=== PATIENT | female | born 1955 | race Caucasian/White ===

== ENCOUNTER → 2017-04-18 | Outpatient (CLI) | payer OTHER ==
[~2017-04-18] MED LIST: ABILIFY; ABILIFY 5 MG TAB5 MG PO; ABILIFY10 MG PO; ALLEGRA ALLERG180 MG PO; ATIVAN0.5 MG PO; ATIVAN1 MG PO; AZITHROMYCIN 2250 MG PO; BUPROPION; BUSPAR30 MG PO; BUSPIRONE HCL10 MG PO; CEFDINIR300 MG PO; CHLORTHALIDONE25 MG PO; COLESTID1 GM PO; COLESTID5 GM PO; CYCLOBENZAPRINE5 MG PO; CYMBALTA PO; CYMBALTA30 MG PO; CYMBALTA60 MG PO; EFFEXOR 5050 MG/1 T1 PO; EFFEXOR PO; EFFEXOR XR150 MG PO; EFFEXOR XR75 MG PO; ELIQUIS5 MG PO; ESTRATEST TABL1 EACH PO; HYDROCHLOROTHIA25 M2 PO; HYDROCODON-ACE1 EAC5 PO; IBUPROFEN 200200 M1 PO; IBUPROFEN 800800 M1 PO; KLONOPIN1 MG PO; LEVAQUIN 250 M250 MG PO; LEVSIN PO; LISINOPRIL2.5 MG PO; LISINOPRIL20 MG PO; LOMOTIL TABLET1 EACH PO; MOBIC15 MG PO; MOBIC7.5 MG PO; MS CONTIN15 MG PO; MS CONTIN30 MG PO; MUCINEX TA600 MG/TA1 PO; MUCINEX600 MG PO; MUCUS RELIEF200 MG PO; NEURONTIN 300300 M1 PO; NEXIUM 40 MG CA40 M1 PO; NORCO 10-325 T1 EAC1 PO; NORCO 10-325 T1 EACH PO; NORVASC2.5 MG PO; NUCYNTA ER150 MG PO; NUCYNTA ER50 MG PO; OXYCONTIN15 MG PO; PREDNISONE 10 M10 MG PO; PREMPRO; PRILOSEC 20 MG20 MG PO; PRILOSEC40 MG PO; REMICADE 1100 MG/VIA IV; SINGULAIR 10 MG10 M1 PO; TESSALON PERLE100 MG PO; TIZANIDINE HCL2 M1 PO; TRAZODONE HCL50 MG PO; VENTOLIN HFA 1818 GM INH; VITAMIN B-12 IM; VITAMIN B-12500 MCG PO; VITAMIN D10000 UNIT PO; WELLBUTRIN 75 M75 M1 PO; WELLBUTRIN SR150 MG PO; ZANAFLEX4 MG PO; ZANTAC 150MG T150 MG PO; [UNRECOGNIZED DRUG - OTHER]
--- NOTE | 2017-04-23 07:21 | PAINCON ---
[facility] [address] [place] [address] PAIN MANAGEMENT CONSULTATION Name: BRYN MANZANARES [id number] Admission: 04/18/17 Attend Phys: Tiffanie Oneal Discharge: Date of : 51 Report #: [id number] THIS REPORT FOR: //name// CC: Jay Gonzalez DATE OF SERVICE: 04/18/2017 The patient is a 61-year-old female typically treated for cervical radiculopathy, status post decompressive laminectomy, requiring high-risk complex medication management. At last visit 02/21/2017, she was doing well on baseline medication. She had failed MS Contin 15 mg q. 8 hours. We had increased the MS Contin 30 mg b.i.d. She has been doing better with this. Takes hydrocodone 10/325 intermittently, typically 1 tablet up to 3 times a day. She returns to Pain Clinic today noting medications continues to provide sufficient analgesia to participate in activities of daily living, rates the pain a 4 on a VAS. Having some increasing pain in her hands with pain in the thumbs. PHYSICAL EXAMINATION: Shows 5 feet 8 inches, 188-pound female, BMI is 28.6 kg/m2, blood pressure 126/71, pulse 93, respirations 16. Cervical range of motion is modestly limited. Upper extremity strength is generally preserved. Hand grasp is symmetric. Does have some tenderness over the first metacarpophalangeal joint. No significant osseous or rheumatoid nodules are noted. We reviewed the fact that opiate medications are being used to provide analgesia adequate to support activities of daily living, not attempting to achieve a specific pain score on the 0-10 Visual Analog Scale. The current opiate medications are providing sufficient analgesia to allow the patient to participate in activities of daily living. The patient is not exhibiting any aberrant behavior suggestive of drug diversion. The patient is not having any adverse reactions to medications. The patient is not suffering from daytime somnolence or mental acuity changes. The patient is managing opiate-induced constipation with appropriate iihy-tgr-gqirrua agents and dietary considerations. The patient was counseled on concern for caution with operating a motor vehicle while using opiate medications. A physical exam was performed and the patient's functional status was evaluated. All patients with back pain were advised against the bed rest greater than 4 days and were advised to return to normal activities. Pain score assessment was noted and the treatment plan was reviewed with the patient. All current medications, both prescribed and OTC were reviewed and reconciled on the electronic medical record. Tobacco screening was accomplished and smoking cessation was advised when indicated. BMI was noted and diet/[place] [address] PAIN MANAGEMENT CONSULTATION Name: BRYN MANZANARES Room: [facility] Mendoza#: [id number] Admission: 04/18/17 Attend Phys: Tiffanie Oneal Discharge: Date of : 51 Report #: [id number] modification was recommended for all patients following outside normal parameters. I reviewed with the patient today their responsibilities to safeguard prescription medications, reviewed their responsibility to utilize medications only as prescribed by the physician. They are to seek and receive pain medications only from 1 physician group ( [facility]). They are to use 1 pharmacy and keep the clinic informed if they change pharmacies. Their responsibilities include making followup visits in a timely fashion and to avoid abrupt discontinuation of medication usage. Their responsibilities further include bringing their medications (bottles from the pharmacy with residual pills) to the visit for possible confirmation of pill counts and the patient understands it is their responsibility to submit to random drug screens to ensure both that the medications prescribed are present, and that no other controlled substances are present. All prescriptions provided today were generated electronically. ASSESSMENT: Symptomatic cervical radiculopathy, status post decompressive laminectomy requiring high-risk complex medication management. The patient with some issues with chronic anxiety and depression. RECOMMENDATION: Continue current medication unchanged including MS Contin 30 mg b.i.d., hydrocodone 10/325 one tablet up to 3 times a day. The patient and her are both seen in the Pain Clinic. They have gotten off cycle by about 2 weeks. I did provide the patient with a 2-week prescription today and then a 2 and 6-week release prescription. We will plan on seeing both she and her back in 2-1/2 months. We did go over the opiate consent to treat contract and this was signed again today. Last random drug screen appears to be 04/12/2016 positive for prescribed medications and no others. Discharged in good and stable condition. We will renew buccal drug swab at next visit. No aberrant behavior suggestive of drug diversion, simply complying with opiate consent to treat contract. <ELECTRONICALLY SIGNED> By: Dank Gonzalez DO 04/23/17 0721 1337 [id number] Gonzalez DO /nt
== END ==
LOC: M.PC 10:34
DX: M54.12 Radiculopathy, cervical region (principal); F41.9 Anxiety disorder, unspecified; F32.9 Major depressive disorder, single episode, unspecified; Z98.890 Other specified postprocedural states; Z79.899 Other long term (current) drug therapy

== ENCOUNTER → 2017-06-13 | Outpatient (CLI) | payer OTHER ==
--- NOTE | 2017-06-18 08:02 | PAINCON ---
[facility] [address] [place] [address] PAIN MANAGEMENT CONSULTATION Name: BRYN MANZANARES [id number] Admission: 06/13/17 Attend Phys: Tiffanie Oneal Discharge: Date of : 53 Report #: [id number] THIS REPORT FOR: //name// CC: Jay Gonzalez DATE OF SERVICE: 06/13/2017 The patient is a 61-year-old female, prior seen on 04/18/2017. She was treated for cervical radiculopathy, status post decompressive laminectomy requiring complex medication management. Continued on MS Contin 30 mg b.i.d., hydrocodone 10/325 for breakthrough pain. She returns to pain clinic today noting medications generally providing sufficient analgesia to participate in activities of daily living. She takes 3-4 hydrocodone for breakthrough pain. Tizanidine as needed for spasm, MS Contin 30 mg b.i.d. Today, we discussed concerns for opiate-induced hyperalgesia at length. She rates pain as a 7 on a VAS, pain all over "with primary pain in neck and shoulders and hands." She is going to [place], [place] to help her mother who is scheduled for her second total knee arthroplasty. Currently, she has a little upper respiratory infection, on Levaquin. PHYSICAL EXAMINATION: GENERAL: Otherwise unchanged. Height 5 feet 8 inches, 187 pounds female, BMI is 28 kilograms per meter squared. VITAL SIGNS: Blood pressure 133/74, pulse is 108, respirations 16. NEUROLOGIC: Alert to person, place and time, judged to be a reasonable historian. Cervical range of motion is modestly limited. She has a little photophobia today. EXTREMITIES: Upper extremity strength is symmetric. She rises from chair using armrest, modestly antalgic gait, diffuse tenderness across the low back. No discrete trigger points noted. We reviewed the fact that opiate medications are being used to provide analgesia adequate to support activities of daily living, not attempting to achieve a specific pain score on the 0-10 Visual Analog Scale. The current opiate medications are providing sufficient analgesia to allow the patient to participate in activities of daily living. The patient is not exhibiting any aberrant behavior suggestive of drug diversion. The patient is not having any adverse reactions to medications. The patient is not suffering from daytime somnolence or mental acuity changes. The patient is managing opiate-induced constipation with appropriate trsw-uft-odyervo agents and dietary considerations. The patient was counseled on concern for caution with operating a motor vehicle while using opiate medications. A physical exam was performed and the patient's functional status was evaluated. All patients with back pain were advised against the bed rest greater than [address] [place] [address] PAIN MANAGEMENT CONSULTATION Name: BRYN MANZANARES Room: [facility]#: [id number] Admission: 06/13/17 Attend Phys: Tiffanie Oneal Discharge: Date of : 51 Report #: [id number] days and were advised to return to normal activities. Pain score assessment was noted and the treatment plan was reviewed with the patient. All current medications, both prescribed and OTC were reviewed and reconciled on the electronic medical record. Tobacco screening was accomplished and smoking cessation was advised when indicated. BMI was noted and diet/exercise modification was recommended for all patients following outside normal parameters. I reviewed with the patient today their responsibilities to safeguard prescription medications, reviewed their responsibility to utilize medications only as prescribed by the physician. They are to seek and receive pain medications only from 1 physician group ( [facility]). They are to use 1 pharmacy and keep the clinic informed if they change pharmacies. Their responsibilities include making followup visits in a timely fashion and to avoid abrupt discontinuation of medication usage. Their responsibilities further include bringing their medications (bottles from the pharmacy with residual pills) to the visit for possible confirmation of pill counts and the patient understands it is their responsibility to submit to random drug screens to ensure both that the medications prescribed are present, and that no other controlled substances are present. All prescriptions provided today were generated electronically. ASSESSMENT: Symptomatic degenerative joint disease, requiring complex medication management, cervical radiculopathy, status post decompressive laminectomy. RECOMMENDATIONS: 1. Buccal drug swab today. No aberrant behavior suggestive for drug diversion, simply complying with out opiate consent to treat contract. 2. Continue current medication unchanged; however, we will increase hydrocodone 10/325 from 90 to 100 tablets. Follow up in 2 months for reevaluation. <ELECTRONICALLY SIGNED> By: Dank Gonzalez DO 06/18/17 0802 1526 1934Dank Gonzalez DO /tae
== END ==
LOC: M.PC 00:43
DX: M47.22 Other spondylosis with radiculopathy, cervical region (principal); Z79.899 Other long term (current) drug therapy

== ENCOUNTER → 2017-08-22 | Outpatient (CLI) | payer OTHER ==
--- NOTE | 2017-08-23 06:59 | PAINCON ---
[facility] [address] [place] [address] PAIN MANAGEMENT CONSULTATION Name: BRYN MANZANARES Room: [facility] Kelly#: [id number] Admission: 08/22/17 Attend Phys: Tiffanie Oneal Discharge: Date of : 53 Report #: [id number] THIS REPORT FOR: //name// CC: Jay Gonzalez The patient is a very pleasant 61-year-old female, being treated for symptomatic cervical radiculopathy status post decompressive laminectomy, neuropathic pain requiring complex medication management. She has been stable on MS Contin 30 mg b.i.d. with hydrocodone 10/325 one tablet 3-4 times a day, limit 100 tablets for 30 days. Typically, she takes 90 mg morphine equivalent daily with an occasional extra 10 mg hydrocodone tablet. Notes while symptoms have generally well controlled with current medication in the last few months, she is having increasing paresthesia and tingling in her hands when driving. She also notes that her hands are asleep when she wakes up. PHYSICAL EXAMINATION: Shows a pleasant 61-year-old female. Cervical range of motion is modestly limited, compatible with her prior anterior cervical disk fusion, does, however, have a positive Lhermitte's sign. Hand grasp is symmetric. Tinel's is negative. Slight decreased biceps and brachioradialis reflexes, left more than right. Symptoms are subjectively a little more positive on the left; positive on the right as well. Subjective pain score is 5 on a VAS. Blood pressure 139/74, pulse 71, respirations are 16, BMI is 28 kg/m2. Gait is tandem. Lower extremity strength is preserved. We reviewed the fact that opiate medications are being used to provide analgesia adequate to support activities of daily living, not attempting to achieve a specific pain score on the 0-10 Visual Analog Scale. The current opiate medications are providing sufficient analgesia to allow the patient to participate in activities of daily living. The patient is not exhibiting any aberrant behavior suggestive of drug diversion. The patient is not having any adverse reactions to medications. The patient is not suffering from daytime somnolence or mental acuity changes. The patient is managing opiate-induced constipation with appropriate tnip-hct-mugohph agents and dietary considerations. The patient was counseled on concern for caution with operating a motor vehicle while using opiate medications. A physical exam was performed and the patient's functional status was evaluated. All patients with back pain were advised against the bed rest greater than 4 days and were advised to return to normal activities. Pain score assessment was noted and the treatment plan was reviewed with the patient. All current medications, both prescribed and OTC were reviewed and reconciled on the electronic medical record. Tobacco screening was accomplished and smoking cessation was advised when indicated. BMI was noted and diet/exercise modification was recommended for all patients [place] [address] PAIN MANAGEMENT CONSULTATION Name: GLENNABRYN Moreno Room: [facility] Mendoza#: [id number] Admission: 08/22/17 Attend Phys: Tiffanie Oneal Discharge: Date of : 51 Report #: [id number] I reviewed with the patient today their responsibilities to safeguard prescription medications, reviewed their responsibility to utilize medications only as prescribed by the physician. They are to seek and receive pain medications only from 1 physician group ( [facility]). They are to use 1 pharmacy and keep the clinic informed if they change pharmacies. Their responsibilities include making followup visits in a timely fashion and to avoid abrupt discontinuation of medication usage. Their responsibilities further include bringing their medications (bottles from the pharmacy with residual pills) to the visit for possible confirmation of pill counts and the patient understands it is their responsibility to submit to random drug screens to ensure both that the medications prescribed are present, and that no other controlled substances are present. All prescriptions provided today were generated electronically. ASSESSMENT: 1. Symptomatic cervical radiculopathy status decompressive laminectomy. 2. Chronic pain syndrome, requiring complex medication management. 3. Neuropathic pain. 4. Acute exacerbation of cervical radicular symptoms. RECOMMENDATION: Continue current medication unchanged including MS Contin 30 mg b.i.d., hydrocodone 10/325 one tablet 3-4 times a day, limit 100 tablets for 30 days. PROCEDURE: Cervical epidural injection under fluoroscopy. PROCEDURE NOTE: After written and informed consent was obtained including risk of dural puncture, spinal cord trauma, paralysis and increased pain, the patient was taken to the fluoroscopy suite and placed in the prone position, with appropriate abdominal bolstering, neck was flexed, palms under the thighs. Skin was prepped with ChloraPrep. Sterile draping was applied. Skin wheal with 1% Xylocaine was raised. A 22-gauge 3-1/2 inch epidural Tuohy needle was placed via a midline approach at the C7-T1 interspace, advanced under biplanar fluoroscopy using continuous loss of resistance. With appropriate loss of resistance at the expected depth on lateral view, the glass loss of resistance syringe was disconnected. A low volume extension tubing was connected to the needle and a 5 mL syringe. Negative aspiration for cerebrospinal fluid or blood was noted. A 1 mL of Omnipaque was injected which showed spread within the epidural space on biplanar fluoroscopy. This was followed with 80 mg of triamcinolone plus 1 mL of 1.5% preservative Xylocaine. Needle was withdrawn to the interspinous ligament, 0.5 mL of Xylocaine was used to flush the needle. The needle was then completely withdrawn. The area was cleansed. Band-Aid was applied. The patient was allowed to move off the procedure [place] [address] PAIN MANAGEMENT CONSULTATION Name: BRYN MANZANARES [id number] Admission: 08/22/17 Attend Phys: Tiffanie Oneal Discharge: Date of : 51 Report #: [id number] to the recovery room, monitored for an appropriate period of time, discharged in good and stable condition. <ELECTRONICALLY SIGNED> By: Dank Gonzalez DO 08/23/17 0659 1218 1530Dank Gonzalez DO /nt
== END | disposition home or self-care (01) ==
LOC: M.PC 08-08 04:06
DX: M54.12 Radiculopathy, cervical region (principal); G89.4 Chronic pain syndrome; Z79.891 Long term (current) use of opiate analgesic; Z88.2 Allergy status to sulfonamides; Z88.8 Allergy status to other drugs, medicaments and biological substances; Z79.899 Other long term (current) drug therapy; Z98.890 Other specified postprocedural states

== ENCOUNTER 2017-10-08 14:22 | Emergency (ER) | payer OTHER ==
[~2017-10-08] VITALS: Ht 172.7 cm; Wt 86.2 kg
[~2017-10-08 14:22] MED LIST changes: -CYCLOBENZAPRINE5 MG PO; -HYDROCODON-ACE1 EAC5 PO; -NEURONTIN 300300 M1 PO
[2017-10-08 15:18] LABS: ABSOLUTE BASOPHILS 0.1 thou/uL (0.0-0.2); ABSOLUTE LYMPHOCYTES 3.1 thou/uL (0.8-5.3); ABSOLUTE MONOCYTES 0.8 thou/uL (0.0-1.2); ABSOLUTE NEUTROPHILS 7.7 thou/uL (1.6-8.1); BASOPHILS 0.6 %; EOSINOPHILS 0.2 %; HEMATOCRIT 32.9 % (37.0-47.0); HEMOGLOBIN 11.1 gm/dL (12.0-15.0); LYMPHOCYTES 26.8 %; MCH 30.6 pg (26.0-34.0); MCHC 33.8 g/dL (28.0-37.0); MCV 90.7 fL (80.0-100.0); MONOCYTES 6.6 %; MPV 6.7 fl. (7.2-11.1); NUCLEATED RBCS 0 /100WBC; PLATELET COUNT* 355 thou/uL (150-400); POLYS 65.8 %; RBC 3.63 mil/uL (4.20-5.00); RDW-CV 14.4 % (10.5-14.5); WBC 11.7 thou/uL (4.0-11.0)
[2017-10-08 15:24] LABS: ANION GAP 5 mmol/L (7-16); BUN 16 mg/dL (7-18); CALCIUM 8.3 mg/dL (8.5-10.1); CHLORIDE 92 mmol/L (98-107); CO2 31 mmol/L (21-32); CREATININE 1.1 mg/dL (0.6-1.3); GLUCOSE 98 mg/dL (70-99); POTASSIUM 3.3 mmol/L (3.5-5.1); SODIUM 128 mmol/L (136-145)
[2017-10-08 15:32] LABS: ALBUMIN 3.3 g/dL (3.4-5.0); ALKALINE PHOSPHATASE 193 U/L (46-116); SGOT 487 U/L (15-37); SGPT 322 U/L (30-65); TOTAL BILIRUBIN 0.6 mg/dL (<0.1-1.0); TOTAL PROTEIN 6.8 g/dL (6.4-8.2); TROPONIN-I LEVEL <0.06 ng/mL (<0.06)
--- NOTE | 2017-10-08 15:54 | EKG ---
[place] [address] ELECTROCARDIOGRAM REPORT Name: GLENNABRYN Tiffanie Room: [facility]#: [id number] Admission: 10/08/17 Attend Phys: Discharge: Date of : 53 Report #: [id number] THIS REPORT FOR: //name// [facility] ED Test Date: 2017-10-08 Test Time: 14:29:55 Pat Name: BRYN MANZANARES Department: Room: Gender: F [employer] Architect: Luana LOPEZ : 1955 Requested By: Morris Cleary Order Number: [id number] Reading MD: Guzman Jimenez Measurements Intervals [place] Rate: 89 P: 67 SC: 172 QRS: -2 QRSD: 93 T: -6 QT: 370 QTc: 451 Interpretive Statements Sinus rhythm Probable left atrial enlargement Low voltage, precordial leads poor r wave progression Compared to ECG 08/24/2016 09:13:42 Low QRS voltage now present Electronically Signed On 10-08-2017 15:54:18 CDT by Guzman Jimenez [email or web address] <ELECTRONICALLY SIGNED> By: Guzman Jimenez MD, [facility] 10/08/17 1554 1429 1429 Guzman Jimenez MD, [facility] /EPI
[2017-10-08] MEDS ORDERED: CYCLOBENZAPRINE5 MG PO (16:10)
[2017-10-08 16:16] VITALS: BP 150/65
[2017-10-08 16:24] LABS: ESR (SEDRATE) 10 mm/hr (0-30)
[2017-10-18] MEDS ORDERED: MS CONTIN30 MG PO (08:48)
[2017-10-18] MEDS ORDERED: IBUPROFEN 800800 M1 PO (08:48)
[2017-10-18] MEDS ORDERED: NORCO 10-325 T1 EACH PO (08:48)
[2017-10-18] MEDS ORDERED: ZANAFLEX4 MG PO (08:48)
[2017-10-18] MEDS ORDERED: NEURONTIN 300300 M1 PO (09:43)
[2017-12-13] MEDS ORDERED: ZANAFLEX4 MG PO ×2 (08:27→10:55)
[2017-12-13] MEDS ORDERED: IBUPROFEN 800800 M1 PO ×2 (08:27→10:55)
[2017-12-13] MEDS ORDERED: CYCLOBENZAPRINE5 MG PO ×2 (08:27→10:55)
[2017-12-13] MEDS ORDERED: NEURONTIN 300300 M1 PO ×2 (08:27→10:55)
[2017-12-13] MEDS ORDERED: MS CONTIN30 MG PO ×2 (08:27→10:55)
[2017-12-13] MEDS ORDERED: NORCO 10-325 T1 EACH PO ×2 (08:27→10:55)
[2017-12-13] MEDS ORDERED: HYDROCODON-ACE1 EAC5 PO (10:57)
== END 2017-10-08 16:17 | disposition home or self-care (01) ==
LOC: M.ERS 14:22
PROVIDERS: Physician Assistant
DX: M62.830 Muscle spasm of back (principal); R11.0 Nausea; K50.90 Crohn's disease, unspecified, without complications; M19.90 Unspecified osteoarthritis, unspecified site; M79.7 Fibromyalgia; F32.9 Major depressive disorder, single episode, unspecified; Z86.711 Personal history of pulmonary embolism; Z88.2 Allergy status to sulfonamides; Z88.6 Allergy status to analgesic agent

== ENCOUNTER → 2017-10-18 | Outpatient (CLI) | payer OTHER ==
[~2017-10-18] MED LIST changes: +CYCLOBENZAPRINE5 MG PO; +HYDROCODON-ACE1 EAC5 PO; +NEURONTIN 300300 M1 PO
--- NOTE | 2017-10-26 08:37 | PAINCON ---
[facility] [address] [place] [address] PAIN MANAGEMENT CONSULTATION Name: BRYN MANZANARES Room: [facility] M[facility]UEL Mendoza#: [id number] Admission: 10/18/17 Attend Phys: Rehana Reese MD Discharge: Date of : 53 Report #: [id number] THIS REPORT FOR: //name// CC: Rehana Almeida DATE OF SERVICE: 10/18/2017 CHIEF COMPLAINT: Pain in the right and left shoulder, down hands, hips, knees, back and feet. FOLLOWUP HISTORY: The patient is a 62-year-old female who has been followed in the pain clinic by Dr. Dank Gonzalez. This is my first time visiting with the patient. She has a history of cervical radiculopathy and is status post decompressive laminectomy. She also has some neuropathic pain. She has found that MS Contin and hydrocodone are helpful. She states that she has taken the medication as prescribed. She has returned today for renewal of her medications. She underwent a cervical epidural steroid injection at the last visit. Rates her pain as a 6/10 today. She is having some pain, which is quite problematic in the left shoulder blade. It has been worse over the last 2 months. It has caused her some problems with sleeping. Notes that the pain is worse with activities, changes in temperature, walking, sitting, standing, going from a standing to a sitting or sitting to a standing position. She feels that her medications and use of cold when resting are helpful. ALLERGIES: SULFA, DARVOCET. CURRENT MEDICATIONS: Abilify, Wellbutrin 75 mg b.i.d., buspirone 30 mg daily, Colestid 5 grams packets, Cymbalta 30 mg, Mucinex 600 mg q. 12 hours, hydrochlorothiazide 25 mg, hydrocodone 10/325 one p.o. p.r.n., ibuprofen 800 mg q. 8 hours p.r.n., Levaquin 250 mg daily, Singulair 10 mg, MS Contin 30 mg b.i.d., prednisone 10 mg, tizanidine 4 mg t.i.d. PAST MEDICAL HISTORY: Anemia, hypertension, chronic colon problems, stomach problems, joint disease/arthritis. PAST SURGICAL HISTORY: Cervical decompressive laminectomy. REVIEW OF SYSTEMS: Right shoulder pain, left shoulder pain, chronic pain syndrome, depression. LABORATORY DATA: 1. No new laboratory values were available. Last MRI dated 10/21/2013 reveals status post C4-C5 and C5-C6 interbody fusion. Fused levels appear normal. 2. C3-C4 interspace and facet effusions are noted. 3. Degenerative processes present at the C6/C7 and C7/T1 [place] [address] PAIN MANAGEMENT CONSULTATION Name: BRYN MANZANARES Room: [facility]#: [id number] Admission: 10/18/17 Attend Phys: Rehana Reese MD Discharge: Date of : 51 Report #: [id number] central or foraminal stenosis present. PAIN CLINIC ASSESSMENT: 1. 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 2. Height 5 feet 8 inches. Weight 192 pounds, BMI is 30. 3. VITAL SIGNS: Blood pressure 124/61, heart rate 74, respiratory rate 18, room air saturation 94%, temperature 98.2. 4. Pain intensity score is 6/10. 5. Fall history: The patient has not fallen in the last 3 months. 6. Blood thinner. The patient is not on a blood thinning medication. 7. Hypertension. The patient is not being treated for hypertension. 8. Opioid use. The patient has received her opioid medications through the pain clinic. 9. Risk assessment tool. 10. Functional assessment tool. 11. Recreational drug use. The patient denies use of recreational drugs. 12. Tobacco: The patient denies use of tobacco. 13. Alcohol: The patient denies use of alcohol. PHYSICAL EXAMINATION: GENERAL: The patient is a well-developed, well-nourished white female, appears her stated age. She is alert and oriented x 3. Her affect is appropriate. Speech is fluent. HEENT: Normocephalic, atraumatic. Extraocular eye muscles intact. Sclerae nonicteric. Hearing is within normal limits. HEART: Regular rate. LUNGS: Clear to auscultation. EXTREMITIES: Upper extremity muscle strength is modestly limited. Has some limited ability to raise her arms above her shoulder and above the ____. Notes some increased pain and discomfort in the left shoulder with elevation of her left arm and shoulder. Deep tendon reflexes are +2 for the left and right brachial biceps area. +1 for the brachioradialis. Did complain of some sensation of her arms going numb last week. Went to the Emergency Room. Lower extremity muscle strength is judged to be 5/5 for the major muscle groups in the lower extremities. Deep tendon reflexes +1 at the knees and +1 at the ankles. Slight decreased muscle strength in the biceps, brachioradialis, left and right. IMPRESSION: 1. History of cervical radiculopathy with history of cervical fusion. 2. Depression. 3. Chronic pain syndrome requiring complex medical management. 4. Neuropathic pain. RECOMMENDATIONS: We discussed treatment options with the patient. At this juncture, we will continue with a conservative approach. The patient's medications will be renewed. She has had conversation [place] [address] PAIN MANAGEMENT CONSULTATION Name: BRYN MANZANARES Room: [facility]#: [id number] Admission: 10/18/17 Attend Phys: Rehana Reese MD Discharge: Date of : 51 Report #: [id number] regards to use of opioid medications. She has seen immediately problems with opioid medications. Possibility of addiction as well as the possibility of less improvement with chronic use of the medication secondary to tolerance. She feels that the gabapentin medication is helpful, morphine is beneficial, as well as the hydrocodone. Takes ibuprofen, does not have any problems with her stomach. Also, feels that the Zanaflex medication is helpful with the muscle spasms. She would like to have her medications renewed. Possible complications again were reviewed and the patient will call us if she has any problems. We would like to thank you for letting us participate in her care. We hope she continues to improve. <ELECTRONICALLY SIGNED> By: Rehana Reese MD 10/26/17 0837 1430 2133N. Kali Reese MD /nt
== END ==
LOC: M.PC 03:26
DX: M54.12 Radiculopathy, cervical region (principal); G89.4 Chronic pain syndrome; F32.9 Major depressive disorder, single episode, unspecified; Z79.899 Other long term (current) drug therapy

== ENCOUNTER → 2017-12-13 | Outpatient (CLI) | payer OTHER ==
--- NOTE | 2017-12-24 10:00 | PAINCON ---
[facility] [address] [place] [address] PAIN MANAGEMENT CONSULTATION Name: BRYN MANZANARES Room: [facility] MIGUEL Mendoza#: [id number] Admission: 12/13/17 Attend Phys: Rehana Reese MD Discharge: Date of : 51 Report #: [id number] THIS REPORT FOR: //name// CC: Rehana Almeida DO DATE OF SERVICE: 12/13/2017 HISTORY OF PRESENT ILLNESS: The patient is a 62-year-old female who has been followed in the pain clinic because of chronic pain. She has undergone cervical injections. She is status post decompressive laminectomy. She also has a history of neuropathic pain. She has been treated with MS Contin and hydrocodone. Finds that these medications continue to be helpful. She has returned today for renewal of her medication. She has noted some increased pain and discomfort involving the left hip. She notes that the pain is worse when she presses on it. She is having difficulty lying on the left side. She feels that the pain in the left side is bad enough that she would like to consider an injection in the affected area. ALLERGIES: SULFA, DARVOCET. MEDICATIONS: Abilify, Wellbutrin 75 mg b.i.d., Buspirone 30 mg daily, t.i.d., Colestid 5 mg packets, Cymbalta 30 mg, Mucinex 600 mg q. 12 hours., hydrochlorothiazide 25 mg, hydrocodone 10/325 one p.o. p.r.n., ibuprofen 800 mg t.i.d. p.r.n., Levaquin 250 mg daily, Singulair 10 mg, MS Contin 30 mg b.i.d., prednisone 10 mg, tizanidine 4 mg t.i.d. PAIN CLINIC ASSESSMENT PQRS: 1. 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 She has not been treated for rheumatoid arthritis. 2. Height 5 feet 8 inches, weight 197 pounds, BMI is 30. 3. Vital signs: Blood pressure 147/82, heart rate 68, respiratory rate 16, room air saturation 96%, temperature 98.1. 4. Pain intensity 05/19. 5. Fall history: The patient has not fallen in the last 3 months. 6. Blood thinner. The patient is not on a blood thinning medication. 7. Opioid. The patient is using opioid medications as prescribed by the pain clinic and gets them from [facility]. 8. Risk assessment tool. 9. Recreational drug use. The patient denies use of recreational drugs. 10. Tobacco: The patient denies use of tobacco. 11. Alcohol: The patient drinks alcohol may be on a monthly basis. PHYSICAL EXAMINATION: GENERAL: The patient is a well-developed, well-[place] [address] PAIN MANAGEMENT CONSULTATION Name: BRYN MANZANARES Room: [facility]#: [id number] Admission: 12/13/17 Attend Phys: Rehana Reese MD Discharge: Date of : 51 Report #: [id number] her stated age. She is alert and oriented x 3. Her affect is appropriate. Speech is fluent. HEENT: Normocephalic, atraumatic. Extraocular eye muscles intact. Sclerae nonicteric. Hearing is within normal limits. HEART: Regular rate. S1, S2. LUNGS: Clear to auscultation. EXTREMITIES: Upper extremity strength is modestly limited. Has some inability to raise her arms above her shoulders. She notes some increased pain and discomfort in the left shoulder with elevation of her left arm. Deep tendon reflexes +1 on the left and right brachial/bicep area. The patient complains of some continued pain and discomfort radiating down into her arm. Upper and lower extremity muscle strength is judged to be 5/5. The patient has pain and discomfort in the left hip area. The patient has pain and discomfort in the left trochanteric area. Palpation in this area does reproduce the patient's pain and discomfort. IMPRESSION: 1. Left trochanteric bursitis. 2. History of cervical radiculopathy with history of cervical fusion. 3. Depression. 4. Chronic pain syndrome requiring complex medical management. 5. Neuropathic pain. RECOMMENDATIONS: We discussed treatment options with the patient. Risks and benefits of a trochanteric injection were discussed. Possible complications include but are not limited to infection, increased muscle soreness, no improvement in pain. The patient elects to proceed. PROCEDURE NOTE: The patient was placed in the right lateral decubitus position. Her left lateral area was then sterilely prepped with a chlorhexidine solution. This was allowed to dry. A 0.25% bupivacaine was infiltrated. A 25-gauge needle was then advanced to the area of the greater trochanteric bursa. Aspiration was negative. Total of 80 mg Depo-Medrol plus 10 mL of 0.5% bupivacaine was injected. The patient's pain changed to 2 at the time of discharge. There was no complication. She will follow up in the future. We would like to thank you for letting us participate in her care. We hope she continues to improve. <ELECTRONICALLY SIGNED> By: Rehana Reese MD 12/24/17 [id number]. Kali Reese MD /tae
== END | disposition home or self-care (01) ==
LOC: M.PC 04:48
DX: M70.62 Trochanteric bursitis, left hip (principal); G89.4 Chronic pain syndrome; M54.12 Radiculopathy, cervical region; F32.9 Major depressive disorder, single episode, unspecified; Z98.890 Other specified postprocedural states; Z79.899 Other long term (current) drug therapy; Z88.2 Allergy status to sulfonamides; Z88.8 Allergy status to other drugs, medicaments and biological substances; Z79.891 Long term (current) use of opiate analgesic

== ENCOUNTER → 2018-02-28 | Outpatient (CLI) | payer OTHER ==
[~2018-02-28] MED LIST changes: +HYDROXYZINE HCL25 M1 PO; +MEDROLDOSEPACK PO
--- NOTE | ~2018-02-28 | PAINCON ---
[facility] [address] [place] [address] PAIN MANAGEMENT CONSULTATION Name: BRYN MANZANARES Room: [facility] M[facility]UEL Mendoza#: [id number] Admission: 02/28/18 Attend Phys: Rehana Reese MD Discharge: Date of : 51 Report #: [id number] THIS REPORT FOR: //name// CC: Rehana Almeida DATE OF SERVICE: 02/28/2018 CHIEF COMPLAINT: Here for medications and left shoulder pain. HISTORY: The patient is a 62-year-old female who has been seen in the pain clinic because of chronic pain. She has undergone cervical epidural steroid injections. She is status post decompressive laminectomy. Has a history of neuropathic pain. She has been treated with MS Contin and hydrocodone. Find these medications continued to be helpful. She returns today indicating that she is having increased pain in the left shoulder blade. It is in the area of rhomboids. Pain has been problematic and wakes her from sleep. Notes that it also has affected her ability to drive. She had similar pain and discomfort in the past. She was in the Emergency Room at the hospital. She states that she got an injection of tramadol as well as another medication that was helpful. At this point, she would like to proceed with an injection with the hope that this would help to ameliorate and decrease some of her pain and discomfort. ALLERGIES: SULFA, DARVOCET. CURRENT MEDICATIONS: Abilify, Wellbutrin 75 mg b.i.d., buspirone 30 mg t.i.d., Colestid 5 mg packets, Cymbalta 30 mg, Mucinex 600 mg q.12 hours, hydrochlorothiazide 25 mg, hydrocodone 10/325 one p.o. p.r.n., ibuprofen 800 mg t.i.d., Levaquin 250 mg, Singulair 10 mg, MS Contin 30 mg b.i.d., prednisone 10 mg, tizanidine 4 mg t.i.d. PAIN CLINIC ASSESSMENT/PQRS: 1. Osteoarthritic changes in the neck are present. The patient is not being treated for rheumatoid arthritis. 2. Height 5 feet 8 inches, weight 197 pounds, BMI 31. 3. Vital signs: Blood pressure 151/74, heart rate 68, respiratory rate 16, room air saturation 92%, temperature 98.1. 4. Pain intensity 8/10. IMPRESSION: 1. Fall history: The patient has not fallen in the last 3 months. 2. Blood thinner. The patient is not on a blood thinning medication. 3. Opioid greater than 6 weeks. The patient receives her [facility], the pain clinic. 4. Risk assessment tool, low free opioid use. 5. Recreational drug use. The patient [place] [address] PAIN MANAGEMENT CONSULTATION Name: BRYN MANZANARES Room: [facility]#: [id number] Admission: 02/28/18 Attend Phys: Rehana Reese MD Discharge: Date of : 51 Report #: [id number] 6. Tobacco: The patient denies use of tobacco. 7. Alcohol. The patient drinks alcoholic beverages on a monthly basis. PHYSICAL EXAMINATION: GENERAL: The patient is a well-developed, well-nourished white female. Appears her stated age. She is alert and oriented x 3. Her affect is appropriate. Speech is fluent. HEENT: Normocephalic, atraumatic. Extraocular eye muscles intact. Sclerae nonicteric. Mucous membranes are moist. NECK: Without adenopathy or JVD. EXTREMITIES: Upper extremity muscle strength is modestly limited. Has some inability to raise her arms above her shoulders. Has pain and discomfort in the left rhomboid area. Palpation in this area does reproduce pain and discomfort. Also, the patient has muscle strength to the lower extremities, rated at 5/5. Has some pain and discomfort in the left hip area. This is near the left greater trochanteric bursa. IMPRESSION: 1. Left mid back pain in the area of rhomboids. 2. Left trochanteric bursitis. 3. History of cervical radiculopathy with history of cervical fusion. 4. Depression. 5. Chronic pain requiring complex medical management. 6. Neuropathic pain. RECOMMENDATIONS: We discussed treatment options with the patient. The patient is having pain in her left shoulder and pain upper back. Also, has some pain in her knees and back as well as down into her feet. She feels that the pain is problematic in her back. She would like to proceed with an injection. In the Emergency Room, Toradol and a shot of steroids were helpful. She would like to have this at this juncture. Also, has had some episodes where her left arm has exhibited some numbness and tingling at time. Overall, she would like to try a conservative approach and undergo a trigger point injection today to help with the pain. RECOMMENDATIONS: We discussed treatment options with the patient. Risks and benefits of a trigger point injection in the rhomboid area was discussed. Possibility of pneumothorax were reviewed. Possibility of infection, worsening of pain, no improvement in pain were discussed and the patient elects to proceed. PROCEDURE NOTE: The patient was taken to the procedure area. She was assisted in getting on the examination table. She is set perpendicular to the table. Chair was placed under her feet. The patient lean forward. Palpation in the rhomboid area did reproduce pain and discomfort in the rhomboid area, which was a noted trigger point. Palpation in this [place] [address] PAIN MANAGEMENT CONSULTATION Name: BRYN MANZANARES Room: [facility] Mendoza#: [id number] Admission: 02/28/18 Attend Phys: Rehana Reese MD Discharge: Date of : 51 Report #: [id number] She elected to proceed with an injection. Her back was sterilely prepped with a chlorhexidine solution. A 25-gauge needle was then advanced into this area of rhomboid. The patient states that this did reproduce her discomfort. Aspiration was negative. A total of 8 mL of 0.5% bupivacaine and 40 mg triamcinolone was injected. The patient tolerated the procedure well. She remained in the pain clinic for an appropriate amount of time. She will follow up in the future as needed. A script for meloxicam 15 mg, hydrocodone 10 mg 1 p.o. t.i.d. has been written. The patient has also been given a script for Mobic to take in place of the ibuprofen at this juncture. She will not take both nonsteroidal anti-inflammatory medication at the same time. She will also continue with tizanidine help with muscle spasms. We would like to thank you for letting us participate in her care. We hope she continues to improve. By: [id number]. Kali Reese MD /nt
== END | disposition home or self-care (01) ==
LOC: M.PC 01:39
DX: M79.18 Myalgia, other site (principal); M54.12 Radiculopathy, cervical region; M25.512 Pain in left shoulder; G89.29 Other chronic pain; F32.9 Major depressive disorder, single episode, unspecified; M70.62 Trochanteric bursitis, left hip; Z98.890 Other specified postprocedural states; Z88.2 Allergy status to sulfonamides; Z88.8 Allergy status to other drugs, medicaments and biological substances; Z79.899 Other long term (current) drug therapy; Z98.1 Arthrodesis status

== ENCOUNTER → 2018-05-23 | Outpatient (CLI) | payer OTHER ==
--- NOTE | 2018-05-28 09:30 | PAINCON ---
[address] [address] PAIN MANAGEMENT CONSULTATION Name: GLENNABRYN NILTON Room: [facility].#: [id number] Admission: 05/23/18 Attend Phys: Rehana Reese MD Discharge: Date of : 51 Report #: [id number] THIS REPORT FOR: //name// CC: Rehana Almeida DATE OF SERVICE: 05/23/2018 PRIMARY CARE PHYSICIAN: Jay Almeida DO FOLLOWUP COMPLAINT: "Here for medication renewal, still having some numbness in my left arm." HISTORY: The patient is a 62-year-old female who has been followed in the pain clinic. As you may recall, she has had some problems with her neck. She has undergone cervical epidural steroid injections. She is status post decompressive laminectomy in the cervical area. She has a history of neuropathic pain. Continues to have some discomfort in the left arm with some numbness. She is still able to use it reasonably well. Notes a slight amount of weakness in it as compared to the contralateral side. She feels that her medications are working well. Not having any side effects. She has returned today to have this medication renewed. ALLERGIES: SULFA, DARVOCET. CURRENT MEDICATIONS: Abilify, Wellbutrin 75 mg b.i.d., buspirone 30 mg t.i.d., Colestid 5 mg packets, Cymbalta 30 mg, Mucinex 600 mg q. 12 hours, hydrochlorothiazide 25 mg, hydrocodone 10/325, ibuprofen 800 mg t.i.d., Levaquin 250 mg, Singulair 10 mg, MS Contin 30 mg, prednisone 10 mg, tizanidine 4 mg t.i.d. PAIN CLINIC ASSESSMENT/PQRS: 1. The patient is not being treated for rheumatoid arthritis. 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 2. Height 5 feet 8 inches, weight 205 pounds, BMI is 31.6. 3. Vital signs: Blood pressure 140/72, heart rate 88, respiratory rate 16, room air saturation 92%, temperature 98.1. 4. Pain intensity 10. 5. Fall history: The patient has not fallen in the last 3 months. 6. Blood thinner. The patient is not on a blood thinning medication. 7. Opioids. The patient receives her [facility], the [facility]. 8. Recreational drug use. The patient denies use of recreational drugs. 9. Tobacco: The patient denies use of tobacco. 10. Alcohol: The patient rarely [place] [address] PAIN MANAGEMENT CONSULTATION Name: BRYN MANZANARES [id number] Admission: 05/23/18 Attend Phys: Rehana Reese MD Discharge: Date of : 51 Report #: [id number] PHYSICAL EXAMINATION: GENERAL: The patient is a well-developed, well-nourished white female. Slightly obese. Appears her stated age. She is alert and oriented x 3. Her affect is appropriate. Speech is fluent. HEENT: Normocephalic, atraumatic. Extraocular eye muscles intact. Sclerae nonicteric. Mucous membranes are moist. NECK: Without adenopathy or JVD. EXTREMITIES: Upper extremity muscle strength is judged to be 5-/5 on the right and 4+/5 on the left. Has perception of some decreased sensation on the left arm. Lower extremity muscle strength is judged to be 5/5 for the major muscle groups. She had some hip pain on the left in the past. This was secondary to trochanteric bursitis. IMPRESSION: 1. Left mid back pain in the rhomboid area. 2. Left trochanteric bursitis. 3. History of cervical radiculopathy with history of cervical fusion. 4. Depression. 5. Chronic pain requiring complex medical management. 6. Neuropathic pain. RECOMMENDATIONS: We discussed treatment options with the patient. Risks and benefits of opioid medication use were discussed. They could include problems with addiction as well as less effectiveness secondary to development of tolerance. The patient feels that her medications are helpful. She has returned today for renewal of her medications. Medications enable her to remain active. We will renew the patient's medications. A script for tizanidine 4 mg, ibuprofen 800 mg t.i.d., morphine 30 mg p.o. b.i.d. have been written, hydrocodone 10/325 one p.o. t.i.d. have been written as well. We would like to thank you for letting us participate in her care. We hope she continues to improve. <ELECTRONICALLY SIGNED> By: Rehana Reese MD 05/28/18 0930 1206 [id number]. Kali Reese MD /CHANCE
== END ==
LOC: M.PC 10:10
DX: M54.6 Pain in thoracic spine (principal); M70.62 Trochanteric bursitis, left hip; Y93.89 Activity, other specified; F32.9 Major depressive disorder, single episode, unspecified; Z98.890 Other specified postprocedural states; Z88.2 Allergy status to sulfonamides; Z88.8 Allergy status to other drugs, medicaments and biological substances; Z79.899 Other long term (current) drug therapy; Z79.891 Long term (current) use of opiate analgesic

== ENCOUNTER → 2018-07-22 | Outpatient (CLI) | payer OTHER ==
--- NOTE | 2018-07-22 12:02 | 2DMMODE ---
[place] [address] 2 D/M-MODE ECHOCARDIOGRAM Name: DAXA MANZANARESCORIE CALLAWAY Room: [facility]#: [id number] Admission: 07/22/18 Attend Phys: Gloria Meza DO Discharge: Date of : 51 Date of Service: 07/22/18 1202 Report #: [id number] THIS REPORT FOR: //name// APPROVED REPORT Study performed: 07/22/2018 09:50:46 EXAM: Comprehensive 2D, Doppler, and color-flow Echocardiogram Patient Location: Out-Patient BSA: 2.01 HR: 76 bpm BP: 133/61 mmHg Other Information Study Quality: Fair Indications Chest Pain 2D Dimensions IVSd: 11.51 (7-11mm) LVOT Diam: 20.69 (18-24mm) LVDd: 38.30 mm PWd: 10.41 (7-11mm) Ascending Ao: 26.12 (22-36mm) LVDs: 25.84 (25-40mm) Aortic Root: 21.10 mm Volumes Left Atrial Volume (Systole) LA ESV Index: 11.80 mL/m2 Aortic Valve AoV Peak Sheldon.: 1.82 m/s AO Peak Gr.: 13.27 mmHg LVOT Max P.88 mmHg AO Mean Gr.: 6.50 mmHg LVOT Mean P.67 mmHg LVOT Max V: 1.10 m/s AO V2 VTI: 32.78 cm LVOT Mean V: 0.76 m/s LLOYD (VTI): 2.53 cm2 LVOT V1 VTI: 24.69 cm Mitral Valve E/A Ratio: 0.94 MV Decel. Time: 319.08 ms MV E Max Sheldon.: 0.82 m/s MV PHT: 92.53 ms MVA (PHT): 2.38 [place]2 [place] [address] 2 D/M-MODE ECHOCARDIOGRAM Name: BRYN MANZANARESNE Room: [facility]#: [id number] Admission: 07/22/18 Attend Phys: Gloria Meza DO Discharge: Date of : 51 Date of Service: 07/22/18 1202 Report #: [id number] TDI E/Lateral E': 6.31 E/Medial E': 6.83 Medial E' Sheldon.: 0.12 m/s Lateral E' Sheldon.: 0.13 m/s Pulmonary Valve PV Peak Sheldon.: 1.34 m/s PV Peak Gr.: 7.23 mmHg Tricuspid Valve RAP Estimate: 5.00 mmHg TR Peak Gr.: 16.86 mmHg RVSP: 21.86 mmHg PA Pressure: 21.86 mmHg Left Ventricle The left ventricle is normal size. There is normal LV segmental wall motion. There is normal left ventricular wall thickness. Left ventricular systolic function is normal. The left ventricular ejection fraction is within the normal range. LVEF is 60-65%. Grade I - abnormal relaxation pattern. Right Ventricle The right ventricle is normal size. The right ventricular systolic function is normal. Atria The left atrium size is normal. The right atrium size is normal. Aortic Valve The aortic valve is normal in structure. No aortic regurgitation is present. There is no aortic valvular stenosis. Mitral Valve The mitral valve is normal in structure. There is no mitral valve regurgitation noted. No evidence of mitral valve stenosis. Tricuspid Valve The tricuspid valve is normal in structure. Trace to mild tricuspid regurgitation. Pulmonic Valve Pulmonic valve is not well visualized. There is no pulmonic valvular regurgitation[place] [address] 2 D/M-MODE ECHOCARDIOGRAM Name: BRYN MANZANARES Room: [facility]#: [id number] Admission: 07/22/18 Attend Phys: Gloria Meza DO Discharge: Date of : 51 Date of Service: 07/22/18 1202 Report #: [id number] The aortic root is normal in size. IVC is normal in size and collapses >50% with inspiration. Pericardium There is no pericardial effusion. <Conclusion> Left ventricular systolic function is normal. The left ventricular ejection fraction is within the normal range. <ELECTRONICALLY SIGNED> By: Guzman Jimenez MD, [facility] 07/22/18 120 01 01 Guzman Jimenez MD, FAC /INF
--- NOTE | 2018-07-22 16:36 | CARDNUC ---
[place] [address] CARDIAC NUCLEAR IMAGING REPORT Name: BRYN MANZANARES Room: [facility]#: [id number] Admission: 07/22/18 Attend Phys: Gloria Meza DO Discharge: Date of : 51 Date of Service: 07/22/18 1636 Report #: [id number] THIS REPORT FOR: //name// APPROVED REPORT Imaging Protocol: Rest Tc-99m/Stress Tc-99m 1 day Study performed: 07/22/2018 08:00:00 Indication: Chest pain, Dyspnea, Irregular heart beat. Patient Location: Out-Patient Stress Tech: Kayla Ayers Stress Nurse: Mari Salinas RN Ht: 5 ft 7 in Wt: 203 lbs BSA: 2.04 m2 BMI: 31.79 Medical History Medical History: Angina, Arrhythmia, COPD, Fatigue, HTN, Obesity , SOB, Weakness, Arthritis, Generalized pain. Medications: Lisinopril Allergies: Darvon, Sulfa. Cardiac Risk Factors: Age, FHX of CAD, HTN, SOB, COPD, Irregular heart beat. Previous Cardiac Procedures: None Pretest Chest Pain Characteristics: No chest pain Exercise History: Sedentary Physical Disabilities: Knees, Back, Neck arthritis, pain. Meds Held (24 hrs): None Resting Data Rest SPECT myocardial perfusion imaging was performed in supine position 30 minutes following the intravenous injection of 10.0 mCi of Tc-99m Sestamibi. Time of rest injection: 08:20 The images were gated to evaluate regional wall motion and calculate left ventricular ejection fraction. Administration Route: IV Administration Site: Right AC Pharmacologic Stress Pharmacologic stress test was performed by injecting Regadenoson 0.4 mg IV push over 10-15 seconds immediately followed by the intravenous injection of 33.4 mCi of Tc-99m Sestamibi. Time of stress injection: 09:45 Administration Route: [place] [address] CARDIAC NUCLEAR IMAGING REPORT Name: GLENNABRYN [id number] Admission: 07/22/18 Attend Phys: Gloria Meza DO Discharge: Date of : 51 Date of Service: 07/22/18 1636 Report #: [id number] Administration Site: Right AC Heart Rate at time of stress injection: 96 bpm. Gated Stress SPECT was performed 45 minutes after stress injection. The images were gated to evaluate regional wall motion and calculate left ventricular ejection fraction. Prone imaging was performed. Stress Test Details Stress Test: Pharmacologic stress testing performed using 0.4 mg of regadenoson per 5 mL given IV over 10 seconds. Reason for pharmacologic stress test: physical limitation, Arthritis/pain.. HR Max Heart Rate (APMHR): 156 bpm Resting HR: 70 bpm Target HR (85% APMHR): 132 bpm Max HR Achieved: 105 bpm % of APMHR: 67 Recovery HR: 94 bpm BP Resting BP: 133/61 mmHg Max BP: 100/64 mmHg Recovery BP: 142/76 mmHg ECG Resting ECG: Sinus Rhythm, nonspecific ST-T abnormalities Stress ECG: Sinus Rhythm, nonspecific ST-T abnormalities ST Change: None Arrhythmia: APC's Recovery ECG: Sinus Rhythm, nonspecific ST-T abnormalities Recovery ST Change: None Recovery Arrhythmia: APC Clinical Reason for Termination: Completed protocol Stress Symptoms: Dyspnea, Lightheaded. Exercise duration: 0 min 0 sec Exercise capacity: 1.00 METs The patient tolerated Lexiscan infusion without significant symptoms. Nurse Comments 62 year old female presented with difficulty walking r/t pain/arthritis, reported recent HX of CP, [place] [address] CARDIAC NUCLEAR IMAGING REPORT Name: BRYN MANZANARESNE Room: [facility]#: [id number] Admission: 07/22/18 Attend Phys: Gloria Meza DO Discharge: Date of : 51 Date of Service: 07/22/18 1636 Report #: [id number] Sitting Lexiscan tolerated well. Recovery unremarkable with PO caffeine. Patient was escorted by staff to Nuclear Medicine for images. Patient was stable with no complaints at that time. Stress ECG Conclusion The baseline 12-lead EKG shows sinus rhythm with downsloping ST segment ST depression inferolateral and anterolateral leads. EKGs obtained during and post Lexiscan infusion show sinus rhythm with no significant ST or T wave changes when compared to baseline. There were no significant stress-induced arrhythmias. Study Quality Study: Good Artifact: No artifact Study Data At rest, the left ventricular ejection fraction was 77%.. Post stress, the left ventricular ejection was 80%.. TID = 0.90. Perfusion Normal left ventricular perfusion. Wall Motion Normal left ventricular wall motion. Nuclear Conclusion ECG Findings: non-diagnostic Clinical Findings: negative for ischemia Nuclear Findings: negative for ischemia Exercise Capacity: not assessed Left Ventricular Function: normal Risk Study: low Myocardial perfusion images show no defect to suggest infarct or ischemia. Left ventricular systolic function appears normal on gated studies. This is a low risk study. <Conclusion> The baseline 12-lead EKG shows sinus rhythm with downsloping ST segment ST depression inferolateral and anterolateral leads. EKGs obtained during and post Lexiscan infusion show sinus rhythm [place] [address] CARDIAC NUCLEAR IMAGING REPORT Name: BRYN MANZANARES Room: [facility] Mendoza#: [id number] Admission: 07/22/18 Attend Phys: Gloria Meza DO Discharge: Date of : 51 Date of Service: 07/22/18 1636 Report #: [id number] or T wave changes when compared to baseline. There were no significant stress-induced arrhythmias. <ELECTRONICALLY SIGNED> By: Torin Du MD, FACC 07/22/18 1636 [id number] Torin Du MD, FACC /INF
== END ==
LOC: M.CRD 07-08 08:00 → M.NUC 07:50
DX: I07.1 Rheumatic tricuspid insufficiency (principal); I49.9 Cardiac arrhythmia, unspecified; I10 Essential (primary) hypertension; J44.9 Chronic obstructive pulmonary disease, unspecified; M54.16 Radiculopathy, lumbar region; Z88.8 Allergy status to other drugs, medicaments and biological substances; Z88.2 Allergy status to sulfonamides; Z90.49 Acquired absence of other specified parts of digestive tract; Z90.710 Acquired absence of both cervix and uterus

== ENCOUNTER → 2018-08-15 | Outpatient (CLI) | payer MEDICARE, OTHER ==
--- NOTE | ~2018-08-15 | PAINCON ---
[address] [address] PAIN MANAGEMENT CONSULTATION Name: BRYN MANZANARES [facility] [id number] Admission: 08/15/18 Attend Phys: Rehana Reese MD Discharge: Date of : 51 Report #: [id number] THIS REPORT FOR: //name// CC: Rehana Almeida DATE OF SERVICE: 08/15/2018 CHIEF COMPLAINT: Here for medication renewal and had pain and discomfort all over. HISTORY OF PRESENT ILLNESS: The patient is a 62-year-old female who has been followed in the pain clinic. As you recall, she has some problems with the cervical area. Has pain in her neck. Complains of pain in her hands, feet, left shoulder as well as thoracic area. She has undergone cervical epidural steroid injections and has found these helpful. She has had a laminectomy in the cervical area. Has some history of neuropathic pain. Finds that the weather pattern has been quite fluctuating over the last few weeks. She has noted worsening of her pain as a result of this. There has been tornadic action in our area. The barometric pressure continues to fluctuate back and forth. She feels that her medications are working reasonably well. She has returned today for renewal of her medications. They are not causing any problems at this point and she feels she is about 50% better with their use. ALLERGIES: SULFA, DARVOCET. CURRENT MEDICATIONS: Abilify, Wellbutrin 75 mg b.i.d., buspirone 30 mg t.i.d., Colestid 5 mg packets, Cymbalta 30 mg, Mucinex 600 mg b.i.d., hydrochlorothiazide 25 mg, hydrocodone 10/325, ibuprofen 800 mg t.i.d., Levaquin 250 mg, Singulair 10 mg, MS Contin 30 mg, prednisone 10 mg, tizanidine 4 mg t.i.d. PAIN CLINIC ASSESSMENT AND PQRS: 1. The patient is not being treated for rheumatoid arthritis. 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 2. Height 5 feet 8 inches, weight 200 pounds, BMI is 37.6. 3. Vital signs: Blood pressure 136/70, heart rate 80, respiratory rate 16, room air saturation 94%, temperature 98.2. 4. Pain intensity, 7/10. 5. Fall history: The patient has not fallen in the last 3 months. 6. Blood thinner. The patient is not on a blood thinning medication. 7. Opioids. The patient receives medications from one source, the pain clinic. 8. Recreational drug use. The patient denies use of recreational drugs. 9. Tobacco: The patient denies use of tobacco. 10. Alcohol: The patient [place] [address] PAIN MANAGEMENT CONSULTATION Name: BRYN MANZANARES [facility]#: [id number] Admission: 08/15/18 Attend Phys: Rehana Reese MD Discharge: Date of : 51 Report #: [id number] PHYSICAL EXAMINATION: GENERAL: The patient is a well-developed, well-nourished, white female. Appears her stated age. She is slightly obese. She is alert and oriented x 3. Her affect is appropriate. Speech is fluent. HEENT: Normocephalic, atraumatic. Extraocular eye muscles intact. Sclerae nonicteric. Mucous membranes are moist. NECK: Without adenopathy or JVD. The patient notes some neck pain. Some pain and discomfort in her hands. Some left shoulder discomfort and some thoracic discomfort. Upper extremity muscle strength is judged to be 5-/5 on the right and 4+ on the left. The patient has some decreased sensation in the left arm. Left lower muscle strength is judged to be 5/5 for the major muscle groups. The patient has some pain and discomfort in the trochanteric bursa. IMPRESSION: 1. Low back pain and the rhomboid area, left trochanteric bursitis. 2. History of cervical radiculopathy with cervical fusion. 3. Depression. 4. Chronic pain requiring complex medical management. 5. Neuropathic pain. RECOMMENDATIONS: We discussed treatment options with the patient. At this juncture, we will continue with her medications. She feels that the medications are helpful. She is aware that opioid medications can be problematic. She is aware that 70,000 people last year as a result of overdose for medications. They have seen in the news the campaign to control and decrease medicine use as much as possible. The patient feels that her medications are helpful. She is about 50% improved. She has had cervical pain and has had surgical intervention. Overall, she feels her medications are working reasonably well. She would like to continue with them. She keeps them in a guarded area. She is aware that they can become less effective over time because of development of tolerance. Feels her medications are working well and would like to have them renewed. A script for her medications has been rewritten. It includes medications for meloxicam 15 mg. The patient will monitor her GI tract. Tizanidine for muscle relaxation and hydrocodone 10/325. The patient will also continue with morphine, MS Contin 30 mg 1 tablet p.o. b.i.d. She will take tramadol as needed 1 tablet p.o. 4 hours p.r.n. The patient is aware that she is on quite a number of opioid medications, but overall she feels that these in conjunction with the gabapentin and duloxetine continue to help with her pain control and help maintain her pain in a reasonable level. We will continue with her current management of her complex medical management with opioids. By: [id number]. Kali Reese MD /CHANCE
== END ==
LOC: M.PC 05:31
DX: Z76.0 Encounter for issue of repeat prescription (principal); M54.5 Low back pain; G89.29 Other chronic pain; F32.9 Major depressive disorder, single episode, unspecified; Z88.2 Allergy status to sulfonamides; Z88.8 Allergy status to other drugs, medicaments and biological substances; Z79.899 Other long term (current) drug therapy; Z79.891 Long term (current) use of opiate analgesic; Z72.89 Other problems related to lifestyle

== ENCOUNTER 2018-10-29 00:57 | Inpatient (IN) | payer MEDICARE, OTHER ==
[~2018-10-29] VITALS: Ht 172.7 cm; Wt 92.2 kg
[2018-10-29] VITALS (7 sets, daily range): BP systolic 106–138; BP diastolic 40–76
[2018-10-29] MEDS ORDERED: SYMBICORT160 MCG/4. INH (01:04)
[2018-10-29 01:32] LABS: PCO2 29.3 mmHg (35.0-45.0)
[2018-10-29 01:36] LABS: pH 7.602 (7.340-7.450)
[2018-10-29 01:46] LABS: HEMATOCRIT 30.9 % (37.0-47.0); HEMOGLOBIN 10.3 gm/dL (12.0-15.0); MCHC 33.3 g/dL (28.0-37.0); MPV 8.2 fl. (7.2-11.1); NUCLEATED RBCS 0 /100WBC; PLATELET COUNT* 358 thou/uL (150-400); RBC 3.43 mil/uL (4.20-5.00); WBC 21.6 thou/uL (4.0-11.0)
[2018-10-29 01:55] LABS: ANION GAP 8 mmol/L (7-16); BUN 8 mg/dL (7-18); CALCIUM 8.6 mg/dL (8.5-10.1); CHLORIDE 94 mmol/L (98-107); CO2 30 mmol/L (21-32); CREATININE 1.1 mg/dL (0.6-1.3); GLUCOSE 142 mg/dL (70-99); SODIUM 132 mmol/L (136-145)
[2018-10-29 01:59] LABS: POTASSIUM 2.9 mmol/L (3.5-5.1)
[2018-10-29 02:01] LABS: ALBUMIN 2.8 g/dL (3.4-5.0); ALKALINE PHOSPHATASE 128 U/L (46-116); MAGNESIUM 1.1 mg/dL (1.8-2.4); SGOT 25 U/L (15-37); SGPT 44 U/L (30-65); TOTAL BILIRUBIN 0.8 mg/dL (<0.1-1.0); TOTAL PROTEIN 6.6 g/dL (6.4-8.2); TROPONIN-I LEVEL <0.06 ng/mL (<0.06)
[2018-10-29 02:15] LABS: APTT 26.2 Seconds (25.0-31.3); INR 1.1
[2018-10-29 02:22] LABS: URINE BILIRUBIN NEGATIVE (Negative); URINE BLOOD NEGATIVE (Negative); URINE CLARITY CLEAR; URINE COLOR YELLOW; URINE GLUCOSE-RANDOM NEGATIVE (Negative); URINE KETONES NEGATIVE (Negative); URINE LEUKOCYTES-REFLEX TRACE (Negative); URINE NITRITE-REFLEX NEGATIVE (Negative); URINE PROTEIN NEGATIVE (Negative); URINE UROBILINOGEN 0.2 E.U./dl (0.2-1.0)
[2018-10-29 02:29] LABS: SQUAMOUS >10 Many /LPF (0-3)
[2018-10-29 02:30] LABS: CASTS None Seen /LPF (None Seen); URINE RBC None Seen /HPF (0-2); URINE WBC-REFLEX 0-5 Rare /HPF (0-5)
[2018-10-29 02:31] LABS: BACTERIA-REFLEX 1-9 Few /HPF (None Seen); CRYSTALS None Seen /LPF (None Seen)
[2018-10-29 02:39] LABS: ABSOLUTE EOSINOPHILS 0.2 thou/uL (0.0-0.7); ABSOLUTE LYMPHOCYTES 3.2 thou/uL (0.8-5.3); ABSOLUTE MONOCYTES 0.9 thou/uL (0.0-1.2); ABSOLUTE NEUTROPHILS 17.3 thou/uL (1.6-8.1)
[2018-10-29 02:40] LABS: LARGE PLATELETS OCCASIONAL; PLATELET ESTIMATE ADEQUATE
[2018-10-29] MEDS ORDERED: CHLORTHALIDONE25 MG PO (03:28)
[2018-10-29] MEDS ORDERED: ZESTRIL40 MG PO (03:34)
[2018-10-29] MEDS ORDERED: TRAZODONE HCL50 MG PO (03:36)
[2018-10-29] MEDS ORDERED: TIROSINT50 MCG PO (03:37)
[2018-10-29] MEDS ORDERED: PRILOSEC OTC20 MG PO (03:38)
[2018-10-29] MEDS ORDERED: MS CONTIN 30 MG30 MG PO (09:10)
--- NOTE | 2018-10-29 11:38 | EKG ---
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: [place] : 1955 Requested By: Rani Bear Order Number: [id number] MD: Guzman Jimenez Measurements Intervals [place] Rate: 94 P: 22 GA: 160 QRS: 36 QRSD: 79 T: 32 QT: 342 QTc: 428 Interpretive Statements Sinus rhythm Minimal ST depression, lateral leads Compared to ECG 10/08/2017 14:29:55 Poor R-wave progression no longer present Electronically Signed On 10-29-2018 11:38:21 CDT by Guzman Jimenez [email or web address] <ELECTRONICALLY SIGNED> By: Guzman Jimenez MD, [facility] 10/29/18 1138 [id number] Guzman Jimenez MD, [facility] /EPI
[2018-10-29 14:35] LABS: AMP/METHAMP Negative (Negative); BARBITURATES Negative (Negative); BENZODIAZEPINES Negative (Negative); COCAINE Negative (Negative); METHADONE Negative (Negative); OPIATES POSITIVE (Negative); PCP Negative (Negative); THC Negative (Negative)
[2018-10-29 18:32] LABS: MAGNESIUM 1.6 mg/dL (1.8-2.4); POTASSIUM 3.6 mmol/L (3.5-5.1)
[2018-10-30] VITALS: BP 114/45
[2018-10-30 04:00] VITALS: BP 117/48
[2018-10-30 05:26] LABS: ABSOLUTE LYMPHOCYTES 1.6 thou/uL (0.8-5.3); ABSOLUTE MONOCYTES 0.4 thou/uL (0.0-1.2); ABSOLUTE NEUTROPHILS 26.1 thou/uL (1.6-8.1); BASOPHILS 0.1 %; HEMATOCRIT 29.2 % (37.0-47.0); HEMOGLOBIN 9.6 gm/dL (12.0-15.0); LYMPHOCYTES 5.6 %; MCH 30.2 pg (26.0-34.0); MCV 91.3 fL (80.0-100.0); MONOCYTES 1.4 %; MPV 7.9 fl. (7.2-11.1); NUCLEATED RBCS 0 /100WBC; PLATELET COUNT* 299 thou/uL (150-400); POLYS 92.9 %; RDW-CV 15.5 % (10.5-14.5); WBC 28.1 thou/uL (4.0-11.0)
[2018-10-30 05:37] LABS: CALCIUM 8.2 mg/dL (8.5-10.1); CREATININE 0.9 mg/dL (0.6-1.3); POTASSIUM 3.3 mmol/L (3.5-5.1)
[2018-10-30 08:00] VITALS: BP 130/59
[2018-10-30 12:26] VITALS: BP 109/47
[2018-10-30 15:47] VITALS: BP 121/54
[2018-10-30 20:12] VITALS: BP 131/56
[2018-10-31] VITALS: BP 120/54
[2018-10-31 04:00] VITALS: BP 125/60
[2018-10-31 04:45] LABS: ABSOLUTE LYMPHOCYTES 1.8 thou/uL (0.8-5.3); ABSOLUTE MONOCYTES 0.5 thou/uL (0.0-1.2); ABSOLUTE NEUTROPHILS 26.1 thou/uL (1.6-8.1); HEMATOCRIT 29.5 % (37.0-47.0); HEMOGLOBIN 9.4 gm/dL (12.0-15.0); LYMPHOCYTES 6.4 %; MCH 29.7 pg (26.0-34.0); MCV 92.7 fL (80.0-100.0); MONOCYTES 1.9 %; MPV 8.3 fl. (7.2-11.1); NUCLEATED RBCS 0 /100WBC; PLATELET COUNT* 352 thou/uL (150-400); POLYS 91.7 %; RBC 3.18 mil/uL (4.20-5.00); RDW-CV 16.1 % (10.5-14.5); WBC 28.4 thou/uL (4.0-11.0)
[2018-10-31 04:52] LABS: MAGNESIUM 1.9 mg/dL (1.8-2.4); POTASSIUM 4.2 mmol/L (3.5-5.1)
[2018-10-31 05:24] LABS: CALCIUM 8.5 mg/dL (8.5-10.1); CREATININE 1.2 mg/dL (0.6-1.3); POTASSIUM 4.4 mmol/L (3.5-5.1)
[2018-10-31 08:00] VITALS: BP 98/62
[2018-10-31 12:04] VITALS: BP 132/62
--- NOTE | 2018-10-31 12:52 | 2DMMODE ---
[facility] [place] [place] [address] 2 D/M-MODE ECHOCARDIOGRAM Name: BRYN MANZANARESNE Room: [address] ADM IN [facility]#: [id number] Admission: 10/29/18 Attend Phys: Nyla Quintana MD Discharge: Date of : 51 Date of Service: 10/31/18 1252 Report #: [id number] THIS REPORT FOR: //name// APPROVED REPORT Study performed: 10/31/2018 11:11:38 EXAM: Limited 2D Echocardiogram Patient Location: In-Patient Room #: 2 BSA: 2.04 HR: 94 bpm BP: 98/62 mmHg Rhythm: NSR Other Information Study Quality: Fair Indications Elevated BNP Left Ventricle The left ventricle is normal size. There is normal LV segmental wall motion. There is normal left ventricular wall thickness. The left ventricular systolic function is normal. The left ventricular ejection fraction is within the normal range. LVEF is 65-70%. Right Ventricle The right ventricle is normal size. The right ventricular systolic function is normal. Atria The left atrium size is normal. The right atrium size is normal. Aortic Valve The aortic valve is normal in structure. Mitral Valve The mitral valve is normal in structure. Tricuspid Valve Tricuspid valve is not well visualized. Pulmonic Valve [address] [address] 2 D/M-MODE ECHOCARDIOGRAM Name: BRYN MANZANARES Room: [address] IN .R.#: [id number] Admission: 10/29/18 Attend Phys: Nyla Quintana MD Discharge: Date of : 51 Date of Service: 10/31/18 1252 Report #: [id number] Pulmonic valve is not well visualized. Great Vessels The aortic root is normal in size. Pericardium There is no pericardial effusion. <Conclusion> The left ventricular systolic function is normal. The left ventricular ejection fraction is within the normal range. <ELECTRONICALLY SIGNED> By: Guzman Jimenez MD, [facility] 10/31/18 1252 51 Guzman Jimenez MD, FACC /INF
[2018-10-31 16:01] VITALS: BP 160/80
[2018-10-31 20:00] VITALS: BP 139/68
[2018-11-01] VITALS: BP 134/58
[2018-11-01 04:00] VITALS: BP 136/67
[2018-11-01 04:43] LABS: HEMATOCRIT 30.2 % (37.0-47.0); HEMOGLOBIN 9.8 gm/dL (12.0-15.0); MCH 29.9 pg (26.0-34.0); MCHC 32.4 g/dL (28.0-37.0); MCV 92.3 fL (80.0-100.0); MPV 7.6 fl. (7.2-11.1); RBC 3.27 mil/uL (4.20-5.00); RDW-CV 15.8 % (10.5-14.5); WBC 20.2 thou/uL (4.0-11.0)
[2018-11-01 05:04] LABS: ALBUMIN 2.5 g/dL (3.4-5.0); CALCIUM 8.3 mg/dL (8.5-10.1); CREATININE 1.3 mg/dL (0.6-1.3); MAGNESIUM 1.9 mg/dL (1.8-2.4); TOTAL BILIRUBIN 0.3 mg/dL (<0.1-1.0); TOTAL PROTEIN 6.4 g/dL (6.4-8.2)
[2018-11-01 07:00] VITALS: BP 151/70
[2018-11-01 12:03] VITALS: BP 173/85
[2018-11-01 15:38] VITALS: BP 143/67
[2018-11-01 19:30] VITALS: BP 144/72
[2018-11-02] VITALS: BP 140/76
[2018-11-02 04:00] VITALS: BP 157/71
[2018-11-02 07:20] VITALS: BP 168/91
[2018-11-02] MEDS ORDERED: AUGMENTIN 875-1 EACH PO (10:12)
[2018-11-02] MEDS ORDERED: PREDNISONE 10 M10 MG PO (10:15)
[2018-11-02] MEDS ORDERED: NORCO 10-325 T1 EACH PO (10:38)
[2018-11-02] MEDS ORDERED: VENTOLIN HFA 1818 GM INH (10:43)
[2018-11-02 10:45] VITALS: BP 168/91
[2018-11-02] MEDS ORDERED: ZANAFLEX4 MG PO (11:03)
[2018-11-02 11:04] VITALS: BP 168/91
[2018-11-02 11:33] VITALS: BP 168/91
== END 2018-11-02 11:30 | disposition home or self-care (01) | DRG 871 ==
LOC: M.ERS 00:57 → M.TBA-ER 02:18 → M.2W 02:18
PROVIDERS: Internal Medicine; Personal Emergency Response Attendant; ADMIT Family Medicine
DX: A41.9 Sepsis, unspecified organism (principal); J15.6 Pneumonia due to other Gram-negative bacteria; J96.01 Acute respiratory failure with hypoxia; K50.90 Crohn's disease, unspecified, without complications; E87.3 Alkalosis; M19.90 Unspecified osteoarthritis, unspecified site; F32.9 Major depressive disorder, single episode, unspecified; E89.0 Postprocedural hypothyroidism; E87.6 Hypokalemia; E83.42 Hypomagnesemia; Z88.2 Allergy status to sulfonamides; Z88.8 Allergy status to other drugs, medicaments and biological substances; Z86.711 Personal history of pulmonary embolism; Z79.899 Other long term (current) drug therapy

== ENCOUNTER → 2018-11-07 | Outpatient (CLI) | payer MEDICARE ==
[~2018-11-07] MED LIST changes: +AUGMENTIN 875-1 EACH PO; +MS CONTIN 30 MG30 MG PO; +PRILOSEC OTC20 MG PO; +SYMBICORT160 MCG/4. INH; +TIROSINT50 MCG PO; +ZESTRIL40 MG PO; +[UNRECOGNIZED DRUG - OTHER]
--- NOTE | ~2018-11-07 | PAINCON ---
[facility] [address] [place] [address] PAIN MANAGEMENT CONSULTATION Name: BRYN MANZANARES [facility] [id number] Admission: 11/07/18 Attend Phys: Rehana Reese MD Discharge: Date of : 51 Report #: [id number] THIS REPORT FOR: //name// CC: Rehana Almeida DATE OF SERVICE: 11/07/2018 CHIEF COMPLAINT: Here for medication renewal. I have pain in my neck, shoulders, knees and hips. HISTORY: The patient is a 63-year-old female who has been followed in the pain clinic for quite a number of years. She has some generalized pain. Has pain involving her neck, shoulders, knees and hips. These have been problematic for years. She does use medications to help control her pain and discomfort. She recently had in-house stay at the hospital for 5 days. She is getting over pneumonia. She rates her pain as a 5/10 today. She has had no complications from her medications. Overall, she feels things are about 50% improved with use of her medications. She and her had a trip to [place]. They went on a tour. They then went on a cruise. Overall, this was a very relaxing and enjoyable trip. She has returned today with hopes of renewing her medications. ALLERGIES: SULFA, DARVOCET. CURRENT MEDICATIONS: Abilify, Wellbutrin 75 mg b.i.d., BuSpar 30 mg t.i.d., Colestid t.i.d. 5 mg packets, Cymbalta 30 mg, Mucinex 600 mg b.i.d., hydrochlorothiazide 25 mg, hydrocodone 10/325, ibuprofen 800 mg t.i.d., Levaquin 250 mg, Singulair 10 mg, MS Contin 30 mg, prednisone 10 mg, tizanidine 4 mg t.i.d. PAIN CLINIC ASSESSMENT AND PQRS: 1. The patient is not being treated for rheumatoid arthritis. 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 Height 5 feet 8 inches, weight 183 pounds, BMI is 28. 2. Vital signs: Blood pressure 148/89, heart rate 99, respiratory rate 16, room air saturation 96%, temperature 98.3. Pain intensity 5/10. 3. Fall history: The patient has not fallen in the last 3 months. 4. Blood thinner. The patient is not on a blood thinning medication. 5. Opioids. The patient has received medications from one source the pain clinic. 6. Risk assessment tool, low for opioid use. 7. Tobacco: The patient denies use of tobacco. 8. Alcohol: The patient rarely drinks alcoholic beverages. PHYSICAL EXAMINATION: GENERAL: The patient is a well-developed, well-[place] [address] PAIN MANAGEMENT CONSULTATION Name: BRYN MANZANARES [facility] [id number] Admission: 11/07/18 Attend Phys: Rehana Reese MD Discharge: Date of : 53 Report #: [id number] her stated age. She is alert and oriented x 3. Her affect is appropriate. Speech is fluent. HEENT: Normocephalic, atraumatic. Extraocular eye muscles intact. Sclerae nonicteric. Mucous membranes are moist. NECK: Without adenopathy or JVD. MUSCULOSKELETAL: The patient has some pain and discomfort in the neck area. Has some pain and discomfort in her shoulders. She notes pain in her upper extremities to be 5-/5 for the major muscle groups in the upper extremity on the right and 4+ on the left. The patient has some decreased sensation in her left arm. Her left lower muscles strength is judged to be 5/5 for the major muscle groups. The patient has had some problems with trochanteric bursitis. Low back pain and rhomboids discomfort with left trochanteric bursitis. DIAGNOSES: 1. History of cervical radiculopathy with cervical fusion. 2. Depression. 3. Chronic pain requiring complex medical management using opioids. 4. Neuropathic pain. RECOMMENDATIONS: We discussed treatment options with the patient. At this juncture, we will continue with her medications. She feels her medications are working reasonably well. She is aware that opioid medications can be helpful, but can become less effective over time secondary to tolerance. Keeps her medications in a guarded area. She is aware that opioid medications have caused addiction in some patients. She does not feel like she is addicted. She has not shown any signs of addiction. She keeps her medications in a guarded area. She will follow up in the future as needed. We would like to thank you for letting us participate in her care. A script for her medications of hydrocodone 10 mg 1 p.o. t.i.d., total of 100 tablets have been written. The patient will also continue with morphine 30 mg, MS Contin b.i.d. She will also continue with Meloxicam 15 mg daily. She will stop this medication if she notes any GI problems. She will continue with tizanidine help with muscle spasms. We would like to thank you for letting us participate in her care. We hope she continues to improve. By: [id number]. Kali Reese MD /tae
== END ==
LOC: M.PC 05:20
DX: M54.12 Radiculopathy, cervical region (principal); M25.569 Pain in unspecified knee; M25.519 Pain in unspecified shoulder; F32.9 Major depressive disorder, single episode, unspecified; G89.29 Other chronic pain; M43.22 Fusion of spine, cervical region; Z79.891 Long term (current) use of opiate analgesic; Z79.899 Other long term (current) drug therapy; Z88.2 Allergy status to sulfonamides; Z88.8 Allergy status to other drugs, medicaments and biological substances

== ENCOUNTER → 2019-01-30 | Outpatient (CLI) | payer MEDICARE ==
[~2019-01-30] MED LIST changes: +LEVAQUIN 750 M750 MG PO
--- NOTE | 2019-02-11 09:09 | PAINCON ---
[facility] [address] [place] [address] PAIN MANAGEMENT CONSULTATION Name: BRYN MANZANARES [facility]#: [id number] Admission: 01/30/19 Attend Phys: Rehana Reese MD Discharge: Date of : 51 Report #: [id number] THIS REPORT FOR: //name// CC: Rehana Almeida DO DATE OF SERVICE: 02/10/2019 CHIEF COMPLAINT: Neck pain as well as knee and hip pain. HISTORY: The patient is a 63-year-old female who has been followed in the pain clinic. As you may recall, she suffers from cervical radicular pain. Has pain that radiates down into her shoulders. Has had some pain in her knees as well. She feels that her current medications are helpful. She is not having any complications. She is able to think clearly. There are no problems with her sensorium. Rates her pain as 3/10. Has noted some increased pain and discomfort because of the cold weather we are experiencing now. She is bothered by pain in her knees as well as pain in her hips. Walking, sitting, standing, climbing stairs, bending and lifting can be problematic. ALLERGIES: SULFA, DARVOCET. CURRENT MEDICATIONS: Abilify, Wellbutrin 75 mg b.i.d., BuSpar 30 mg t.i.d., Colestid 5 mg packets, Cymbalta 30 mg, Mucinex 600 mg b.i.d., hydrochlorothiazide 25 mg, hydrocodone 10/325, ibuprofen 800 mg t.i.d., Levaquin 250 mg, Singulair 10 mg, MS Contin 30 mg, prednisone 10 mg, tizanidine 4 mg t.i.d. PAIN CLINIC ASSESSMENT AND PQRS: 1. The patient is not being treated for rheumatoid arthritis. 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 2. Height 5 feet 8 inches, weight 183 pounds, BMI is 28. 3. Vital signs: Blood pressure is 139/73, heart rate is 73, respiratory rate is 18, room air saturation 95%, temperature 98.1. 4. Pain intensity 05/19. 5. Fall history: The patient has not fallen in the last 3 months. 6. Blood thinner. The patient is not on a blood thinning medication. 7. Opioids. The patient receives medication from [facility]. 8. Risk assessment tool, low for opioid use. 9. Tobacco: The patient denies use of tobacco. 10. Alcohol: The patient rarely drinks alcoholic beverages. PHYSICAL EXAMINATION: GENERAL: The patient is a well-developed, well-nourished white female. Appears her stated age. She is accompanied by her . [place] [address] PAIN MANAGEMENT CONSULTATION Name: BRYN MANZANARES Room: [facility]#: [id number] Admission: 01/30/19 Attend Phys: Rehana Reese MD Discharge: Date of : 53 Report #: [id number] Speech is fluent. HEENT: Normocephalic, atraumatic. Extraocular eye muscles intact. Sclerae nonicteric. Mucous membranes are moist. MUSCULOSKELETAL: The patient has some pain in her neck and shoulders. Upper extremity muscle strength 5-/5 for the major muscle groups in the upper extremity. The patient has some pain in her knees as well as in her hips. Muscle strength in the lower extremities judged to be 5-/5 for the major muscle groups in the lower extremity. The patient has had problems with greater trochanteric bursitis. Left low back pain and left trochanteric bursae are tender. DIAGNOSES: 1. History of cervical radiculopathy status post cervical fusion. 2. Depression. 3. Chronic pain, requiring complex medical management using opioids to help control pain. 4. Neuropathic pain. RECOMMENDATIONS: We discussed treatment options with the patient. Risks and benefits of opioid medications were discussed. The patient feels that the opioid medications are helpful. She is aware that opioid medications can be less effective as time goes on because of development of tolerance. Feels her medications are working reasonably well, keeps them in a guarded area. She is aware that some patients can become addicted to opioids. She has not shown any signs of opioid addiction. She has taken her medications as prescribed. Keeps her medications in a guarded area. Overall, things are going reasonably well with pain in her neck, shoulders, knees and hips, helped by her current medical regimen of morphine, hydrocodone and tizanidine. A script for these medications has all been rewritten. She will continue with morphine 30 mg 1 p.o. b.i.d., hydrocodone 10/325 one p.o. every 4-6 hours, a total 100 tablets have been written. The patient's medications have been written for the next 3 months. She will also continue with Meloxicam. She will monitor GI tract for irritation from nonsteroidal anti-inflammatory medications. She will also continue with tizanidine for the antispasmodic relief. We would like to thank you for letting us participate in her care. We hope she continues to improve. <ELECTRONICALLY SIGNED> By: Rehana Reese MD 02/11/19 0909 [id number]. Kali Reese MD /nt
== END ==
LOC: M.PC 05:04
DX: M54.12 Radiculopathy, cervical region (principal); G89.29 Other chronic pain; F32.9 Major depressive disorder, single episode, unspecified; Z79.899 Other long term (current) drug therapy; Z79.891 Long term (current) use of opiate analgesic; Z88.2 Allergy status to sulfonamides; Z88.8 Allergy status to other drugs, medicaments and biological substances

== ENCOUNTER 2019-02-18 17:49 | Inpatient (IN) | payer MEDICARE ==
[~2019-02-18] VITALS: Ht 172.7 cm; Wt 90.5 kg
[~2019-02-18 17:49] MED LIST changes: -LEVAQUIN 750 M750 MG PO
[2019-02-18 17:55] VITALS: BP 160/64
[2019-02-18 18:28] LABS: ABSOLUTE BASOPHILS 0.1 thou/uL (0.0-0.2); ABSOLUTE EOSINOPHILS 0.1 thou/uL (0.0-0.7); ABSOLUTE LYMPHOCYTES 1.6 thou/uL (0.8-5.3); ABSOLUTE MONOCYTES 1.2 thou/uL (0.0-1.2); ABSOLUTE NEUTROPHILS 7.9 thou/uL (1.6-8.1); BASOPHILS 0.9 %; EOSINOPHILS 0.5 %; HEMATOCRIT 31.9 % (37.0-47.0); HEMOGLOBIN 10.7 gm/dL (12.0-15.0); LYMPHOCYTES 14.9 %; MCH 29.6 pg (26.0-34.0); MCHC 33.6 g/dL (28.0-37.0); MCV 87.9 fL (80.0-100.0); MONOCYTES 11.5 %; MPV 7.4 fl. (7.2-11.1); NUCLEATED RBCS 0 /100WBC; PLATELET COUNT* 305 thou/uL (150-400); POLYS 72.2 %; RBC 3.63 mil/uL (4.20-5.00); RDW-CV 14.3 % (10.5-14.5); WBC 10.9 thou/uL (4.0-11.0)
[2019-02-18 18:36] LABS: CALCIUM 8.6 mg/dL (8.5-10.1); CREATININE 1.2 mg/dL (0.6-1.3)
[2019-02-18 18:39] LABS: APTT 23.2 Seconds (25.0-31.3); INR 1.1; PROTIME 11.4 Seconds (9.20-11.50)
[2019-02-18 18:47] LABS: ALBUMIN 3.2 g/dL (3.4-5.0); TOTAL BILIRUBIN 0.3 mg/dL (<0.1-1.0); TOTAL PROTEIN 6.6 g/dL (6.4-8.2)
[2019-02-18 18:48] LABS: INFLUENZA A ANTIGEN Negative (Negative); INFLUENZA B ANTIGEN Negative (Negative)
[2019-02-18 18:50] LABS: POTASSIUM 2.7 mmol/L (3.5-5.1)
[2019-02-18 23:42] VITALS: BP 143/59
[2019-02-19] VITALS: BP 143/49
[2019-02-19 03:54] VITALS: BP 147/58
--- NOTE | 2019-02-19 04:57 | NUR ---
PT ADMITTED TO FLOOR AT 2345, MONITOR PLACED, ASSESSMENT COMPLETED AT BEDSIDE. PT HAD C/O PAIN TO BACK AND NECK WITH COMPLETE RELIEF WITH PRN PAIN MEDICATION. PT HAD INCREASED ANXIETY TREATED WITH SCHEDULED MEDICATION. ABLE TO SLEEP AFTER, CURRENTLY ASLEEP WITH CALL LIGHT WITHIN REACH.
[2019-02-19 11:38] VITALS: BP 125/59
--- NOTE | 2019-02-19 12:25 | NUR ---
Pt is A&O. Resides at home with her . Independent. No DME. Hx of HH. No hx of SNF. Goal is home at dc, no needs anticipated.
--- NOTE | 2019-02-19 13:25 | EKG ---
[place] [address] ELECTROCARDIOGRAM REPORT Name: BRYN MANZANARES Room: [address] ADM IN .R.#: [id number] Admission: 02/18/19 Attend Phys: Tiffanie Alejandro Discharge: Date of : 51 Report #: [id number] THIS REPORT FOR: //name// 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[place] : 1955 Requested By: Dev Franks Order Number: [id number] Aminah MD: Guzman Jimenez Measurements Intervals [place] Rate: 87 P: 77 PA: 164 QRS: 37 QRSD: 81 T: 30 QT: 378 QTc: 455 Interpretive Statements Sinus rhythm Atrial premature complexes Minimal ST depression, lateral leads Baseline wander in lead(s) V4 Compared to ECG 10/29/2018 01:03:33 Atrial premature complex(es) now present ST (T wave) deviation still present Electronically Signed On 02-19-2019 13:24:55 PLANT MAINTENANCE TECHNICIAN by Guzman Jimenez [email or web address] <ELECTRONICALLY SIGNED> By: Guzman Jimenez MD, FAC 02/19/19 1324 1755 1755 Guzman Jimenez MD, FAC /EPI
--- NOTE | 2019-02-19 15:42 | 2DMMODE ---
[place] [address] 2 D/M-MODE ECHOCARDIOGRAM Name: BRYN MANZANARES Room: [address] IN [facility]#: [id number] Admission: 02/18/19 Attend Phys: Dev Franks Discharge: Date of : 51 Date of Service: 02/19/19 1541 Report #: [id number] THIS REPORT FOR: //name// APPROVED REPORT Study performed: 02/19/2019 14:17:58 EXAM: Comprehensive 2D, Doppler, and color-flow Echocardiogram Patient Location: In-Patient Room #: 201 BSA: 2.00 HR: 74 bpm BP: 158/61 mmHg Other Information Study Quality: Fair Indications Palpitations 2D Dimensions IVSd: 10.06 (7-11mm) LVOT Diam: 19.25 (18-24mm) LVDd: 42.68 mm PWd: 12.02 (7-11mm) Ascending Ao: 28.30 (22-36mm) LVDs: 26.05 (25-40mm) Aortic Root: 21.17 mm Volumes Left Atrial Volume (Systole) LA ESV Index: 13.90 mL/m2 Aortic Valve AoV Peak Sheldon.: 1.73 m/s AO Peak Gr.: 11.96 mmHg LVOT Max P.85 mmHg AO Mean Gr.: 6.09 mmHg LVOT Mean P.76 mmHg LVOT Max V: 1.65 m/s AO V2 VTI: 37.90 cm LVOT Mean V: 1.12 m/s LLOYD (VTI): 2.75 cm2 LVOT V1 VTI: 35.85 cm Mitral Valve E/A Ratio: 0.85 MV Decel. Time: 319.08 ms MV E Max Sheldon.: 0.72 m/s MV PHT: 92.53 [place] [address] 2 D/M-MODE ECHOCARDIOGRAM Name: BRYN MANZANARES Room: [address] IN .R.#: [id number] Admission: 02/18/19 Attend Phys: Dev Franks Discharge: Date of : 51 Date of Service: 02/19/19 1541 Report #: [id number] MVA (PHT): 2.38 cm2 TDI E/Lateral E': 8.00 E/Medial E': 6.55 Medial E' Sheldon.: 0.11 m/s Lateral E' Sheldon.: 0.09 m/s Pulmonary Valve PV Peak Sheldon.: 1.42 m/s PV Peak Gr.: 8.11 mmHg Tricuspid Valve RAP Estimate: 5.00 mmHg TR Peak Gr.: 22.49 mmHg RVSP: 27.49 mmHg PA Pressure: 27.49 mmHg Left Ventricle The left ventricle is normal size. There is normal LV segmental wall motion. There is normal left ventricular wall thickness. Left ventricular systolic function is normal. The left ventricular ejection fraction is within the normal range. LVEF is 55-60%. Grade I - abnormal relaxation pattern. Right Ventricle The right ventricle is normal size. The right ventricular systolic function is normal. Atria The left atrium size is normal. The right atrium size is normal. Aortic Valve The aortic valve is normal in structure. No aortic regurgitation is present. There is no aortic valvular stenosis. Mitral Valve The mitral valve is normal in structure. There is trace mitral valve regurgitation noted. No evidence of mitral valve stenosis. Tricuspid Valve The tricuspid valve is normal in structure. Mild tricuspid regurgitation. pa pressure estimated at 25 mm Hg Pulmonic Valve Pulmonic valve is not well visualized. There is no pulmonic [place] [address] 2 D/M-MODE ECHOCARDIOGRAM Name: BRYN MANZANARES Room: [address] IN [facility]#: [id number] Admission: 02/18/19 Attend Phys: Dev Franks Discharge: Date of : 51 Date of Service: 02/19/19 1541 Report #: [id number] Great Vessels The aortic root is normal in size. The inferior vena cava is not well visualized. Pericardium There is no pericardial effusion. <Conclusion> Left ventricular systolic function is normal. The left ventricular ejection fraction is within the normal range. <ELECTRONICALLY SIGNED> By: Guzman Jimenez MD, FACC 02/19/19 1541 [id number] Guzman Jimenez MD, FACC /INF
[2019-02-19 15:43] VITALS: BP 100/60
--- NOTE | 2019-02-19 18:00 | NUR ---
ASSUMED PT CARE AT 0700, PT A&O X4, FEBRILE THROUGHOUT SHIFT, PRN TYLENOL ON BOARD. VSS, MOLDING FITTER TRACING SONUS RHYTHM WITH PAC'S, DRY, NON-PRODUCTIVE COUGH, PLACED PT ON 2LPM O2 D/T SAO2 87-88 ON RA. PT EDUCATED ON DIET STATUS FOR PROCEDURES, STATES UNDERSTANDING, FULL ASSESSMENT CHARTED. HOURLY ROUNDING COMPLETED.
[2019-02-19 20:00] VITALS: BP 101/48
[2019-02-20] VITALS: BP 100/58
--- NOTE | 2019-02-20 03:51 | NUR ---
PT HAD C/O PAIN TO BACK AND NECK, RECIEVED PRN PAIN MEDICATION WITH PARTIAL RELIEF. PT REQUIRES MANUAL BLOOD PRESSURES TO BE TAKEN THEY ARE NOT ACCURATE WITH ELECTRONIC CUFF. MANUAL CUFF LEFT AT BEDSIDE. COUGH HAS INCREASED THROUGH OUT SHIFT, PROVIDED THROAT LOZENGES AND HOT TEA WITH PARTIAL RELIEF. CURRENTLY AWAKE IN BED WITH CALL LIGHT WITHIN REACH.
[2019-02-20 04:00] VITALS: BP 104/47
[2019-02-20 05:26] LABS: ABSOLUTE BASOPHILS 0.1 thou/uL (0.0-0.2); ABSOLUTE MONOCYTES 0.8 thou/uL (0.0-1.2); ABSOLUTE NEUTROPHILS 4.9 thou/uL (1.6-8.1); BASOPHILS 0.8 %; EOSINOPHILS 0.4 %; HEMATOCRIT 26.5 % (37.0-47.0); HEMOGLOBIN 8.8 gm/dL (12.0-15.0); LYMPHOCYTES 25.6 %; MCH 29.7 pg (26.0-34.0); MCHC 33.4 g/dL (28.0-37.0); MCV 88.8 fL (80.0-100.0); MONOCYTES 9.7 %; MPV 7.6 fl. (7.2-11.1); NUCLEATED RBCS 0 /100WBC; PLATELET COUNT* 243 thou/uL (150-400); POLYS 63.5 %; RBC 2.98 mil/uL (4.20-5.00); RDW-CV 15.1 % (10.5-14.5); WBC 7.8 thou/uL (4.0-11.0)
[2019-02-20 05:40] LABS: ALBUMIN 2.7 g/dL (3.4-5.0); CALCIUM 7.3 mg/dL (8.5-10.1); CREATININE 1.6 mg/dL (0.6-1.3); MAGNESIUM 1.2 mg/dL (1.8-2.4); POTASSIUM 3.8 mmol/L (3.5-5.1); TOTAL BILIRUBIN 0.3 mg/dL (<0.1-1.0); TOTAL PROTEIN 5.7 g/dL (6.4-8.2)
[2019-02-20 05:58] LABS: INR 1.2; PROTIME 11.8 Seconds (9.20-11.50)
[2019-02-20 06:35] LABS: ESR (SEDRATE) 20 mm/hr (0-30)
[2019-02-20 08:00] VITALS: BP 98/50
[2019-02-20 12:19] VITALS: BP 106/53
[2019-02-20 13:52] LABS: CALCIUM 7.4 mg/dL (8.5-10.1); CREATININE 1.3 mg/dL (0.6-1.3); POTASSIUM 3.4 mmol/L (3.5-5.1)
[2019-02-20 17:42] VITALS: BP 111/46
--- NOTE | 2019-02-20 18:00 | NUR ---
ASSUMED PT CARE AT 0700, PT A&O X4, VSS, VOLLEYBALL COMMENTATOR TRACING SINUS RHYTHM, FULL ASSESSMENT CHARTED. PT CONT ON IV ABTS AND PRN PAIN REGIMEN, TOLERATING WELL. BOWEL PREP DISCONTINUED PER DR MITCHELL, SEE PROGRESS NOTES. HOURLY ROUNDING COMPLETED.
[2019-02-20 20:00] VITALS: BP 114/49
[2019-02-21] VITALS: BP 103/50
[2019-02-21 04:00] VITALS: BP 98/42
--- NOTE | 2019-02-21 04:58 | NUR ---
PT HAS MAINTAINED O2 SATS ON RA. PAIN CONTROL HAS IMPROVED AND MAINTAINED A TOLERABLE LEVEL WITH THE SCHEDULED PAIN MEDICATIONS. PT STATED SHE RESTED BETTER THIS SHIFT. NPO D/T PROCEDURE SCHEDULED FOR TODAY. CURRENTLY AWAKE IN BED WITH CALL LIGHT WITHIN REACH.
[2019-02-21 05:09] LABS: ABSOLUTE EOSINOPHILS 0.1 thou/uL (0.0-0.7); ABSOLUTE LYMPHOCYTES 2.2 thou/uL (0.8-5.3); ABSOLUTE MONOCYTES 0.5 thou/uL (0.0-1.2); ABSOLUTE NEUTROPHILS 3.7 thou/uL (1.6-8.1); BASOPHILS 0.5 %; EOSINOPHILS 1.1 %; HEMATOCRIT 29.5 % (37.0-47.0); HEMOGLOBIN 9.9 gm/dL (12.0-15.0); LYMPHOCYTES 33.4 %; MCH 29.8 pg (26.0-34.0); MCHC 33.5 g/dL (28.0-37.0); MCV 88.9 fL (80.0-100.0); MONOCYTES 7.3 %; MPV 7.3 fl. (7.2-11.1); NUCLEATED RBCS 0 /100WBC; PLATELET COUNT* 261 thou/uL (150-400); POLYS 57.7 %; RBC 3.32 mil/uL (4.20-5.00); WBC 6.5 thou/uL (4.0-11.0)
[2019-02-21 05:22] LABS: ALBUMIN 2.7 g/dL (3.4-5.0); CREATININE 0.9 mg/dL (0.6-1.3); POTASSIUM 3.4 mmol/L (3.5-5.1); TOTAL BILIRUBIN 0.4 mg/dL (<0.1-1.0)
--- NOTE | 2019-02-21 07:15 | NUR ---
CHANGE OF SHIFT, BEDSIDE REPORT GIVEN PATIENT SEEN AT BEDSIDE, IN BED RESTING ASSUMED PATIENT CARE
[2019-02-21 08:00] VITALS: BP 110/61
[2019-02-21 10:14] LABS: URINE BILIRUBIN NEGATIVE (Negative); URINE BLOOD NEGATIVE (Negative); URINE CLARITY CLEAR; URINE COLOR YELLOW; URINE GLUCOSE-RANDOM NEGATIVE (Negative); URINE KETONES NEGATIVE (Negative); URINE LEUKOCYTES-REFLEX NEGATIVE (Negative); URINE NITRITE-REFLEX NEGATIVE (Negative); URINE PROTEIN NEGATIVE (Negative); URINE SPECIFIC GRAVITY <= 1.005 (1.005-1.030); URINE UROBILINOGEN 0.2 E.U./dl (0.2-1.0)
[2019-02-21 10:22] LABS: AMP/METHAMP Negative (Negative); BARBITURATES Negative (Negative); BENZODIAZEPINES Negative (Negative); COCAINE Negative (Negative); METHADONE Negative (Negative); OPIATES POSITIVE (Negative); PCP Negative (Negative); THC Negative (Negative)
[2019-02-21 15:33] VITALS: BP 128/49
--- NOTE | 2019-02-21 17:37 | NUR ---
PATIENT MS STATUS CHANGE EARLIER TODAY PATIENT TRANSFERRED TO 105 REPORT GIVEN TO RHINA GAMING PATIENT MOVED VIA WITH PERSONAL BELONGINGS AT SIDE DURING TRANSFER
[2019-02-21 21:00] VITALS: BP 105/51
--- NOTE | 2019-02-21 22:46 | CON ---
[address] [address] CONSULTATION Name: GLENNABRYN NILTON Room: [address] IN .R.#: [id number] Admission: 02/18/19 Attend Phys: Tiffanie Alejandro Discharge: Date of : 51 Report #: [id number] THIS REPORT FOR: //name// CC: Gloria Franks DICTATED BY: Lori Dill [facility] DATE OF SERVICE: 02/19/2019 Please note at the time of this dictation, the patient was seen and physically examined by myself. REASON FOR CONSULTATION: Abdominal pain, abnormal CT and history of Crohn's disease. HISTORY OF PRESENT ILLNESS: This is a 63-year-old female who presented to the Emergency Room with increased shortness of breath, fever and a nonproductive cough. She was noticing increased shortness of breath with exertion and she had some substernal chest pain present only when she was coughing. All of her symptoms began yesterday the day of admission and she had a fever of 102.5 in which she did take some ibuprofen, which did alleviate her fever. The patient has a longstanding history of Crohn's disease since the age of 16. She states she had been on Remicade for a very long period of time and she had recently this year switched over to Entyvio, which she just received her third infusion about 2 weeks ago and she is on an every 8-week schedule. She states her Crohn's disease is of her small intestine as well. The patient states she takes Metamucil. She will have constipation and then she will have diarrhea. She states all last week, she was having 3-4 liquid stools large amount on a daily basis and that has continued for her. The patient states she did recently go to [facility]. She states she had an EGD and an ultrasound scope, which was an EUS and possibly an ERCP. She could not tell me why she was having that done. We will obtain those records for our evaluation to see if any further intervention is needed. Also, noting that she had a dual ____ CT, which would explain the presence of that if she had a procedure done last week of this nature. The patient states she has also had a colonoscopy done with Dr. Kaur several years ago, which was normal. We will also obtain those records for verification as well. She denies any bright red blood or any black stooling noted with her diarrhea. ALLERGIES: DARVON AND SULFA. MEDICATIONS: From home would include her [place], MS Contin, and Zanaflex. She is on Colestid, Singulair, Mucinex, Cymbalta, Symbicort, chlorthalidone, [place] [address] CONSULTATION Name: BRYN MANZANARES Room: [address] IN [facility]#: [id number] Admission: 02/18/19 Attend Phys: Tiffanie Alejandro Discharge: Date of : 51 Report #: [id number] Zestril, levothyroxine, Desyrel, Prilosec, Abilify, and BuSpar along with her Entyvio infusions. PAST MEDICAL HISTORY: Crohn's disease since age of 16, arthritis and fibromyalgia, depression and history of a PE. PAST SURGICAL HISTORY: Thyroidectomy. She has had a colon resection, cholecystectomy and an appendectomy. FAMILY HISTORY: Noncontributory. SOCIAL HISTORY: She denies any alcohol, tobacco or illegal drug use at this time. PHYSICAL EXAMINATION: VITAL SIGNS: Temperature 37.1, pulse 82, respirations 18, blood pressure 147/58. HEART: Regular rate and rhythm. LUNGS: Diminished, but clear. ABDOMEN: Soft, positive bowel sounds in all 4 quadrants with some lower abdominal tenderness noted to palpation. LABORATORY DATA: Hemoglobin is 10.7, white count is 10.9, platelets 305. PT is 11.4, INR is 1.1. Total bilirubin is 0.3, alkaline phosphatase 88, ALT 38, AST is 46. CTA was negative for PE. Chest x-ray was negative. CT of the abdomen and pelvis showed status post cholecystectomy and a right colon resection with pneumobilia noted in the ducts, esophageal wall thickening with noted esophageal and gastric varices, lots of stool in the colon and rectosigmoid bowel wall thickening noted as well. IMPRESSION: 1. Abdominal pain, alternating bowel habits of constipation and diarrhea. 2. Abnormal CT, large stool in the rectosigmoid as well as esophageal wall thickening with noted esophageal and gastric varices. 3. Fever. 4. Crohn's, Entyvio, last infusion 2 weeks ago. 5. History of pulmonary embolism. PLAN: 1. Dulcolax tablets 10 mg and suppository now. 2. Obtain records from Dr. Kaur and at [facility] to see exactly what procedure she had performed less than a month ago. 3. We will continue her Cipro and Flagyl. 4. Further recommendations to be made after the records have been reviewed as to what [place] [address] CONSULTATION Name: BRYN MANZANARES Room: [address] IN [facility]#: [id number] Admission: 02/18/19 Attend Phys: Tiffanie Alejandro Discharge: Date of : 51 Report #: [id number] Thank you for allowing us to participate in this patient's care. Please do not hesitate to call with any questions in regard to this consult. <ELECTRONICALLY SIGNED> By: Lavelle Buchanan DO 02/21/19 2246 0901 [id number] Buchanan DO /nt
--- NOTE | 2019-02-21 23:00 | NUR ---
INITAL ASSESMENT COMPLTED AT 2100. PT PLEASANT AND COOPERATIVE.PT DENIED PAIN OR DISCOMFORT AT THAT TIME. PT GIVEN SCHEDULED MEDS PER EMAR. CALL LIGHT IN REACH, PT DEMONSTRATES PROPER USE.
[2019-02-22] MEDS ORDERED: LEVAQUIN 750 M750 MG PO (07:55)
[2019-02-22 08:00] VITALS: BP 105/50
[2019-02-22 14:54] VITALS: BP 105/50
--- NOTE | 2019-02-22 19:00 | NUR ---
DR ANISHA MORA TO DISCHARGE THE PT. DISCHARGE EDUCATION GIVEN. IV DC'd. PT LEFT THE UNIT AT 1545 WITH ALL HER BELONGINGS.
--- NOTE | 2019-02-24 14:06 | PATH ---
[address] [address] PATHOLOGY RPT PROCEDURE Name: BRYN MANZANARES Room: [address] IN [facility].#: [id number] Admission: 02/18/19 Date of : 51 Discharge: 02/22/19 Report #: [id number] Path Case #: [id number] [facility] Accession Number: [id number] . 01 Material submitted: . PART A: duodenum - DUODENAL BIOPSY PART B: stomach - GASTRIC BIOPSY PART C: ileum - ILEO CONDUIT ANASTOMOSIS POLYP PART D: colon - RANDOM COLON BIOPSIES . 01 Clinical history: . None provided. . 02 Diagnosis: A. Duodenal biopsy: - Focal fresh hemorrhage in otherwise normal, superficial small intestinal mucosa. . B. Gastric biopsies: - Mild chronic gastritis typical of reactive gastropathy (chemical gastritis), negative for Helicobacter pylori organisms and dysplasia. - Minute fragment of benign small intestinal type mucosa. See comment. . C. Ileo-conduit anastomosis polyp: - Benign small intestinal/bowel mucosa with polypoid/acute inflameed granulation tissue, negative for granulomas, viral inclusions and dysplasia/adenomatous change. . D. Random colon biopsies: - Focal fresh hemorrhage in otherwise normal colonic mucosa. (LORE:nhi; 02/24/2019) QMS 02/24/2019 1157 Local . 02 Comment: A minute fragment of benign small intestinal type mucosa seen in B1, could represent "carryover" from the duodenal biopsy (A). . Special stain on B: H. pylori immuno . (LORE:nhi; 02/24/2019) . 02 Electronically signed: . Juan M Flores MD, Pathologist NPI- [id number] . 01 Gross description: . A. Received in formalin labeled "Bryn Manzanares, duodenal BX" is a 0.2 x 0.2 x 0.1 cm fragment of wilson-brown mucosa. The [place] [address] PATHOLOGY RPT PROCEDURE Name: BRYN MANZANARES Room: [address] IN [facility].#: [id number] Admission: 02/18/19 Date of : 51 Discharge: 02/22/19 Report #: [id number] Path Case #: [id number] A1. . B. Received in formalin labeled "Bryn Manzanares, gastric biopsies" is a 0.5 x 0.3 x 0.1 cm aggregate of wilson-brown mucosa fragments. The specimen is submitted in B1. . C. Received in formalin labeled "Bryn Manzanares, ileo-conduit anastomosis polyp" is a 0.7 x 0.4 x 0.1 cm aggregate of wilson-brown mucosa fragments. The specimen is submitted in C1. . D. Received in formalin labeled "Bryn Manzanares, random colon biopsy" is a 0.6 x 0.5 x 0.1 cm aggregate of wilson-brown mucosa fragments. The specimen is submitted in D1. ([facility]; 02/22/2019) [facility] 02/22/2019 0927 Local . 02 Pathologist provided ICD-10: K29.50, K52.9 . 02 CPT . 071711, 711841, 146661, 984942, T47158 Specimen Comment: A courtesy copy of this report has been sent to [phone], [phone] Specimen Comment: [phone], Specimen Comment: Report sent to , and Performed at: [address] [facility], [place], [place] [id number] MD Everton Lamar MD Phone: [phone] Performed at: [facility] [address], [place], [place] [id number] MD Juan M Flores MD Phone: [phone]
== END 2019-02-22 16:09 | disposition home or self-care (01) | DRG 177 ==
LOC: M.ERS 17:49 → M.TBA-ER 22:34 → M.2W 22:34 → M.ORTHSURG 02-21 17:40
PROVIDERS: Internal Medicine; Internal Medicine Gastroenterology; Nurse Practitioner Family; ADMIT Internal Medicine
PROC: 0DB98ZX Excision of Duodenum, Via Natural or Artificial Opening Endoscopic, Diagnostic (ICD-10-PCS; principal; 2019-02-21)
PROC: 0DB68ZX Excision of Stomach, Via Natural or Artificial Opening Endoscopic, Diagnostic (ICD-10-PCS; principal; 2019-02-21)
PROC: 0DBB8ZX Excision of Ileum, Via Natural or Artificial Opening Endoscopic, Diagnostic (ICD-10-PCS; 2019-02-21)
DX: J15.6 Pneumonia due to other Gram-negative bacteria (principal); N17.0 Acute kidney failure with tubular necrosis; A04.9 Bacterial intestinal infection, unspecified; K50.90 Crohn's disease, unspecified, without complications; I85.00 Esophageal varices without bleeding; J20.9 Acute bronchitis, unspecified; M19.90 Unspecified osteoarthritis, unspecified site; F32.9 Major depressive disorder, single episode, unspecified; E89.0 Postprocedural hypothyroidism; K59.00 Constipation, unspecified; I86.4 Gastric varices; K52.9 Noninfective gastroenteritis and colitis, unspecified; K57.30 Diverticulosis of large intestine without perforation or abscess without bleeding; K64.8 Other hemorrhoids; D12.6 Benign neoplasm of colon, unspecified; E83.42 Hypomagnesemia; E87.6 Hypokalemia; K21.9 Gastro-esophageal reflux disease without esophagitis; K83.4 Spasm of sphincter of Oddi; K21.0 Gastro-esophageal reflux disease with esophagitis; K44.9 Diaphragmatic hernia without obstruction or gangrene; Z86.711 Personal history of pulmonary embolism; Z88.2 Allergy status to sulfonamides; Z88.8 Allergy status to other drugs, medicaments and biological substances; Z90.49 Acquired absence of other specified parts of digestive tract

== ENCOUNTER 2019-02-27 23:36 | Inpatient (IN) | payer MEDICARE, OTHER ==
[~2019-02-27] VITALS: Ht 172.7 cm; Wt 83.5 kg
[~2019-02-27 23:36] MED LIST changes: +LEVAQUIN 750 M750 MG PO
[2019-02-27 23:41] VITALS: BP 142/85
[2019-02-28 00:34] LABS: ABSOLUTE BASOPHILS 0.1 thou/uL (0.0-0.2); ABSOLUTE EOSINOPHILS 0.2 thou/uL (0.0-0.7); ABSOLUTE LYMPHOCYTES 4.7 thou/uL (0.8-5.3); ABSOLUTE MONOCYTES 0.8 thou/uL (0.0-1.2); ABSOLUTE NEUTROPHILS 8.5 thou/uL (1.6-8.1); BASOPHILS 0.9 %; EOSINOPHILS 1.1 %; HEMATOCRIT 33.9 % (37.0-47.0); HEMOGLOBIN 11.3 gm/dL (12.0-15.0); LYMPHOCYTES 32.8 %; MCH 29.1 pg (26.0-34.0); MCHC 33.3 g/dL (28.0-37.0); MCV 87.3 fL (80.0-100.0); MONOCYTES 5.6 %; MPV 7.5 fl. (7.2-11.1); NUCLEATED RBCS 0 /100WBC; PLATELET COUNT* 562 thou/uL (150-400); POLYS 59.6 %; RBC 3.88 mil/uL (4.20-5.00); WBC 14.2 thou/uL (4.0-11.0)
[2019-02-28 00:45] LABS: CALCIUM 8.7 mg/dL (8.5-10.1); CREATININE 1.1 mg/dL (0.6-1.3); POTASSIUM 3.6 mmol/L (3.5-5.1)
[2019-02-28 00:55] LABS: ALBUMIN 3.3 g/dL (3.4-5.0); TOTAL BILIRUBIN 0.3 mg/dL (<0.1-1.0); TOTAL PROTEIN 6.6 g/dL (6.4-8.2)
[2019-02-28 01:15] LABS: INFLUENZA A ANTIGEN Negative (Negative); INFLUENZA B ANTIGEN Negative (Negative)
[2019-02-28 01:59] VITALS: BP 131/62
[2019-02-28 02:25] VITALS: BP 151/60
[2019-02-28 07:30] VITALS: BP 116/56
--- NOTE | 2019-02-28 13:29 | EKG ---
[place] [address] ELECTROCARDIOGRAM REPORT Name: BRYN MANZANARES Room: [address] ADM IN .R.#: [id number] Admission: 02/28/19 Attend Phys: Darien Dacosta MD Discharge: Date of : 51 Report #: [id number] THIS REPORT FOR: //name// [facility] ED Test Date: 2019-02-28 Test Time: 00:36:37 Pat Name: BRYN MANZANARES Department: Room: [facility] Gender: F Credit Risk Associate: : 1955 Requested By: Joe Quinones Order Number: [id number] MD: Morris Lal Measurements Intervals [place] Rate: 89 P: 71 ID: [id number] QRS: 9 QRSD: 79 T: 10 QT: 385 QTc: 469 Interpretive Statements Sinus rhythm Probable left atrial enlargement Borderline T abnormalities, inferior leads Compared to ECG 02/18/2019 17:55:09 T-wave abnormality now present Atrial premature complex(es) no longer present Electronically Signed On 02-28-2019 13:29:03 ELECTRICIAN SUBSTATION SUPERVISOR by Morris Lal [email or web address] <ELECTRONICALLY SIGNED> By: Morris Lal MD, FAC 02/28/19 1329 0036 0036 Morris Lal MD, [facility] /EPI
[2019-02-28 16:00] VITALS: BP 112/63
[2019-02-28 19:38] VITALS: BP 175/86
[2019-03-01 08:25] VITALS: BP 137/67
[2019-03-01 17:42] VITALS: BP 147/77
[2019-03-01 20:38] LABS: URINE BILIRUBIN NEGATIVE (Negative); URINE BLOOD NEGATIVE (Negative); URINE CLARITY CLEAR; URINE COLOR YELLOW; URINE GLUCOSE-RANDOM NEGATIVE (Negative); URINE KETONES NEGATIVE (Negative); URINE LEUKOCYTES-REFLEX NEGATIVE (Negative); URINE NITRITE-REFLEX NEGATIVE (Negative); URINE PROTEIN NEGATIVE (Negative); URINE SPECIFIC GRAVITY 1.015 (1.005-1.030); URINE UROBILINOGEN 0.2 E.U./dl (0.2-1.0)
[2019-03-01 20:40] VITALS: BP 156/82
[2019-03-01 23:30] VITALS: BP 144/65
[2019-03-02 04:00] VITALS: BP 147/77
[2019-03-02 09:50] VITALS: BP 156/86
[2019-03-02 16:49] VITALS: BP 151/76
[2019-03-02 20:32] VITALS: BP 142/65
[2019-03-03 08:02] VITALS: BP 157/87
[2019-03-03 09:30] VITALS: BP 157/84
[2019-03-03] MEDS ORDERED: PULMICORT0.5 MG/2 M INH (09:48)
[2019-03-03] MEDS ORDERED: CEFDINIR300 MG PO (09:48)
[2019-03-03] MEDS ORDERED: IPRAT-ALBUT 0.5-3 ML INH (09:48)
[2019-03-03] MEDS ORDERED: AZITHROMYCIN 2250 MG PO (09:48)
[2019-03-03] MEDS ORDERED: FLUCONAZOLE 10100 MG PO (09:48)
[2019-03-03] MEDS ORDERED: NEBULIZER MISCELL (09:49)
[2019-03-03] MEDS ORDERED: BROVANA15 MCG/2 M INH (09:52)
[2019-03-03 10:10] VITALS: BP 157/87
== END 2019-03-03 10:40 | disposition home or self-care (01) | DRG 193 ==
LOC: M.ERS 23:36 → M.TBA-ER 02-28 01:05 → M.ORTHSURG 02-28 01:05
PROVIDERS: Emergency Medicine; Internal Medicine; ADMIT Internal Medicine
DX: J18.9 Pneumonia, unspecified organism (principal); J96.91 Respiratory failure, unspecified with hypoxia; I50.32 Chronic diastolic (congestive) heart failure; R65.10 Systemic inflammatory response syndrome (SIRS) of non-infectious origin without acute organ dysfunction; K50.90 Crohn's disease, unspecified, without complications; E87.2 Acidosis; J45.901 Unspecified asthma with (acute) exacerbation; J20.9 Acute bronchitis, unspecified; M19.90 Unspecified osteoarthritis, unspecified site; F32.9 Major depressive disorder, single episode, unspecified; E89.0 Postprocedural hypothyroidism; D64.9 Anemia, unspecified; D72.829 Elevated white blood cell count, unspecified; Z86.711 Personal history of pulmonary embolism; Z90.710 Acquired absence of both cervix and uterus; Z88.2 Allergy status to sulfonamides; Z88.8 Allergy status to other drugs, medicaments and biological substances

== ENCOUNTER → 2019-03-27 | Outpatient (CLI) | payer MEDICARE, OTHER ==
[~2019-03-27] MED LIST changes: +BROVANA15 MCG/2 M INH; +FLUCONAZOLE 10100 MG PO; +IPRAT-ALBUT 0.5-3 ML INH; +NEBULIZER MISCELL; +PULMICORT0.5 MG/2 M INH
== END ==
LOC: M.RAD 10:03
DX: J84.9 Interstitial pulmonary disease, unspecified (principal); J40 Bronchitis, not specified as acute or chronic; D89.89 Other specified disorders involving the immune mechanism, not elsewhere classified; M43.22 Fusion of spine, cervical region

== ENCOUNTER → 2019-04-17 | Outpatient (CLI) | payer MEDICARE, OTHER ==
[~2019-04-17] MED LIST changes: +HYDROCODON-ACE1 EAC7 PO; +MELOXICAM15 MG PO
--- NOTE | 2019-04-22 08:37 | PAINCON ---
[facility] [address] [place] [address] PAIN MANAGEMENT CONSULTATION Name: BRYN MANZANARES Room: [facility] MIGUEL Mendoza#: [id number] Admission: 04/17/19 Attend Phys: Rehana Reese MD Discharge: Date of : 51 Report #: [id number] THIS REPORT FOR: //name// cc: Jay Almeida Steve T. DO ~ THIS REPORT FOR: //name// CC: Rehana Almeida DATE OF SERVICE: 04/17/2019 CHIEF COMPLAINT: "Left shoulder pain and I was in the hospital because of pneumonia." HISTORY: The patient is a 63-year-old female who has been followed in the pain clinic because of chronic pain in the cervical area and neck as well as pain in her hips. She returns today indicating that she is having more pain involve in the left shoulder area. She would like to have this area injected. Injections in the past have been helpful. She rates her pain as 7/10. She notes that there is some discomfort in her shoulder and her neck as well. Knees and hips are problematic as well. The weather has changed, gotten colder. She has noticed a worsening of pain since that change in weather. She has had a couple of hospital visits on 01/2019 and 02/2019. She was hospitalized because of pneumonia. She states that she underwent treatment with antibiotics and is beginning to feel somewhat better. She and her have planned a vacation. They will be on board a cruise ship. She would like to undergo an injection in the left shoulder area with the hopes of increasing or decreasing the pain and discomfort she is experiencing. She rates her pain as about 70% improved with her current medical regimen. ALLERGIES: SULFA AND DARVOCET. CURRENT MEDICATIONS: Abilify, Wellbutrin 75 mg b.i.d., BuSpar 30 mg t.i.d., Colestid 5 mg packets, Cymbalta 30 mg, Mucinex 600 mg b.i.d., hydrochlorothiazide 25 mg, hydrocodone 10/325, ibuprofen 800 mg t.i.d., Levaquin 250 mg, Singulair 10 mg, MS Contin 30 mg b.i.d., prednisone 10 mg, tizanidine 4 mg t.i.d. PAIN CLINIC ASSESSMENT AND PQRS: 1. The patient is not being treated for rheumatoid arthritis. She has some arthritic changes in her neck. 2. Height 5 feet 8 inches, weight 199 pounds, BMI is 30.0. 3. Vital Signs: Blood pressure 146/66, heart rate 89, respiratory rate 16, room air saturation 97%, temperature 97.9. 4. Pain intensity 7/10. [place] [address] PAIN MANAGEMENT CONSULTATION Name: BRYN MANZANARES Room: [facility]#: [id number] Admission: 04/17/19 Attend Phys: Rehana Reese MD Discharge: Date of : 51 Report #: [id number] 5. Fall history: The patient has not fallen in the last 3 months. 6. Blood thinner. The patient is not on a blood thinning medication. 7. Opioids. The patient receives medication from one source, the pain clinic. 8. Risk assessment tool, low for opioid use. 9. Tobacco: The patient denies use of tobacco. 10. Alcohol: The patient rarely drinks alcoholic beverages. PHYSICAL EXAMINATION: GENERAL: The patient is a well-developed, well-nourished white female. Appears her stated age. She is accompanied by her . Her speech is fluent. HEENT: Normocephalic, atraumatic. Extraocular eye muscles intact. Sclerae nonicteric. Mucous membranes moist. MUSCULOSKELETAL: The patient has some pain and discomfort in her left shoulder area. She is able to point out an area in the area of the posterior deltoid muscle. Upper extremity muscle strength judged to be 5-/5 for the major muscle groups in the upper extremity. The patient also has pain in her knees as well as in her hips. Muscles in the lower extremity are judged to be 5-/5 for the major muscle groups. IMPRESSION: 1. Right shoulder pain. 2. History of cervical radicular pain, status post cervical fusion. 3. Depression. 4. Chronic pain, requiring opioids for complex medical management. 5. Neuropathic pain. 6. Recent hospitalization in 01/2019 and 02/2019 because of pneumonia. RECOMMENDATIONS: We discussed treatment options with the patient. At this juncture, she feels her medications are helpful. She feels that the pain is about 70% improved with her current medical regimen. She feels that the MS Contin medication, [place] medication are helpful. She would like to continue with their use. Notes that her pain increases with certain activities, walking, sitting, standing, climbing stairs, lifting and bending. She feels that the left shoulder is quite problematic. She is able to place her finger on a discrete point on the left shoulder, which seems to be the nidus for a portion of her pain. She would like to have this area injected with local anesthetic and steroid. She also would like to have her medications renewed. We will continue with her use of hydrocodone 10/325 one p.o. q. 4-6 hours p.r.n., 100 tablets per month and morphine sulfate 30 mg 1 p.o. b.i.d. She will also continue with the meloxicam. She finds that tizanidine is helpful with muscle spasm and we will continue with that medication. We discussed the risks and benefits of an injection in the left deltoid area. The patient elects to proceed. PROCEDURE NOTE: The patient was taken to the procedure area. She was then assisted in getting on the examination table. Her [place] [address] PAIN MANAGEMENT CONSULTATION Name: BRYN MANZANARES Room: [facility] MIGUEL Mendoza#: [id number] Admission: 04/17/19 Attend Phys: Rehana Reese MD Discharge: Date of : 53 Report #: [id number] prepped with a chlorhexidine solution and allowed to dry. An area near the left deltoid was palpated. The patient pointed this area out prior to sterilization of the area and stated this was the area where her pain was most problematic. A 25-gauge needle was then advanced into the area. The patient states this did reproduce her discomfort. Aspiration was negative. A total of 5 mL of 0.5% bupivacaine and 40 mg triamcinolone was injected into this area. The patient tolerated the procedure well. There was no numbness or tingling in her hands or fingers. She will follow up in the future as needed. We would like to thank you for letting us participate in her care. We hope she continues to improve. <ELECTRONICALLY SIGNED> By: Rehana Reese MD 04/22/19 0837 1315 1540N. Kali Reese MD /nt
== END ==
LOC: M.PC 10:00
DX: M25.511 Pain in right shoulder (principal); F32.9 Major depressive disorder, single episode, unspecified; G89.29 Other chronic pain; G62.9 Polyneuropathy, unspecified; Z79.891 Long term (current) use of opiate analgesic; Z98.1 Arthrodesis status

== ENCOUNTER → 2019-07-10 | Outpatient (CLI) | payer MEDICARE, OTHER ==
--- NOTE | 2019-07-11 08:13 | PAINCON ---
[facility] [address] [place] [address] PAIN MANAGEMENT CONSULTATION Name: BRYN MANZANARES Room: [facility] Kelly#: [id number] Admission: 07/10/19 Attend Phys: Rehana Reese MD Discharge: Date of : 51 Report #: [id number] THIS REPORT FOR: //name// cc: Jay Almeida Steve T. DO ~ THIS REPORT FOR: //name// CC: Rehana Almeida DATE OF SERVICE: 07/10/2019 CHIEF COMPLAINT: Cervical neck pain, knee, and hip pain. HISTORY: The patient is a 63-year-old female who has been followed by the pain clinic. She has a number of areas, which are problematic. She complains of pain involving her neck, shoulders, knees and hips. She has noted some increase in pain over the last few weeks. She feels that the change in weather might be a reason. She has been experiencing chills at night for a week. She feels that her medications continue to be helpful. She finds that hydrocodone, MS Contin, and meloxicam beneficial. Tizanidine continues to help with muscle spasms. She is somewhat concerned because of the COVID-19 pandemic. She does have some compromise systems. She has some problems with breathing. She has had pneumonia. She rates her pain improved with her current medication. She feels about 70% improved with use of these medications. She notes that walking, sitting, standing, climbing stairs, lifting and bending can be problematic. She has noticed use of her medications and heat to be helpful. She is returned today for renewal of her medications. She is not having any complications with their use. ALLERGIES: SULFA AND DARVOCET. CURRENT MEDICATIONS: Abilify, Wellbutrin 75 mg b.i.d., BuSpar 30 mg t.i.d., Colestid 5 mg, Cymbalta 30 mg, Mucinex 600 mg b.i.d., hydrochlorothiazide 25 mg, hydrocodone 10/325 every 4 hours p.r.n., ibuprofen 800 mg, Levaquin 250 mg has been used, Singulair 10 mg, MS Contin 30 mg b.i.d., and tizanidine 4 mg. PAIN CLINIC ASSESSMENT AND PQRS: 1. The patient is not being treated for rheumatoid arthritis. She has some arthritic changes in her neck. 2. Height 5 feet 8 inches, weight 203 pounds, BMI is 30.9. 3. Vital signs: Blood pressure 150/74, heart rate 92, respiratory rate 16, room air saturation is 96%, and temperature 98.6. 4. Pain intensity 5/10. 5. Fall history: The patient has not fallen in the last 3 months. 6. Blood thinner. The patient is not on a blood [place] [address] PAIN MANAGEMENT CONSULTATION Name: BRYN MANZANARES Room: [facility]#: [id number] Admission: 07/10/19 Attend Phys: Rehana Reese MD Discharge: Date of : 51 Report #: [id number] 7. Opioids. The patient receives medication from the pain clinic. 8. Risk assessment tool is low for opioid use. 9. Tobacco: The patient denies use of tobacco. 10. Alcohol: The patient rarely drinks alcoholic beverages. PHYSICAL EXAMINATION: GENERAL: The patient is a well-developed, well-nourished white female. She is accompanied by her . She is alert and oriented x 3. Her affect is appropriate. Speech is fluent. HEENT: Normocephalic, atraumatic. Extraocular eye muscles intact. The patient is wearing a mask. MUSCULOSKELETAL: Upper extremity, pain, the patient has pain and discomfort in the posterior portion of her deltoids. Muscle strength in the upper extremity judged to be 5-/5 for the major muscle groups. The patient has pain in her knees. She has some pain and complains of discomfort in her hips. Lower extremity muscle strength judged to be 5-/5. IMPRESSION: 1. Shoulder pain. 2. History of cervical radicular pain, status post cervical fusion. 3. Depression. 4. Chronic pain, requiring opioids and complex medical management to control pain. 5. Neuropathic pain. RECOMMENDATIONS: We discussed treatment options with the patient. At this juncture, we will continue with her medications. She feels that they are helpful. She is not having any complication from their use. A script for her medications of hydrocodone 10/325 has been rewritten. The patient will also continue with MS Contin 30 mg 1 p.o. b.i.d. She will continue with the muscle relaxant tizanidine. She would also like to continue with the Cymbalta. A script for her medications have been sent to her pharmacy. She is aware that opioid medications can become less effective as time goes on. She is using her medications as prescribed, keeps them in a guarded area. We would like to thank you for letting us participate in her care. She and her state that they will continue to stay in social isolation. They will call if they have any concerns. <ELECTRONICALLY SIGNED> By: Rehana Reese MD 07/11/19 0813 1301 1408N. Kali Reese MD /nt
== END ==
LOC: M.PC 04:07
DX: M54.2 Cervicalgia (principal); M25.561 Pain in right knee; M25.562 Pain in left knee; M25.552 Pain in left hip; M25.551 Pain in right hip; M25.519 Pain in unspecified shoulder; F32.9 Major depressive disorder, single episode, unspecified; G58.8 Other specified mononeuropathies; F11.20 Opioid dependence, uncomplicated; Z87.39 Personal history of other diseases of the musculoskeletal system and connective tissue; Z88.8 Allergy status to other drugs, medicaments and biological substances; Z79.899 Other long term (current) drug therapy

== ENCOUNTER → 2019-10-02 | Outpatient (CLI) | payer MEDICARE, OTHER ==
--- NOTE | 2019-10-13 00:07 | PAINCON ---
[facility] [address] [place] [address] PAIN MANAGEMENT CONSULTATION Name: BRYN MANZANARES [id number] Admission: 10/02/19 Attend Phys: Rehana Reese MD Discharge: Date of : 51 Report #: [id number] THIS REPORT FOR: //name// cc: Jay Almeida Steve T. DO ~ THIS REPORT FOR: //name// CC: Rehana Almeida DATE OF SERVICE: 10/02/2019 CHIEF COMPLAINT: Neck, shoulder, knee and hip pain. HISTORY: The patient is a 64-year-old female who has been followed in the pain clinic. She has pain, which continues to be problematic. It involves a number of areas. She has pain in her neck and shoulders. She also has hip pain as well as knee pain. She rates her pain as a 5/10 today. She feels that her medications of hydrocodone and MS Contin are helpful. She notes pain is worse with sitting, walking, standing, bending, and lifting. She feels that her medications are helpful given her problems. She would like to have the medications renewed. She is not having any complication from their use. ALLERGIES: SULFA, DARVOCET. CURRENT MEDICATIONS: Abilify, Wellbutrin 75 mg b.i.d., BuSpar 30 mg t.i.d., colestid 5 mg, Cymbalta 30 mg, Mucinex 600 mg b.i.d., hydrochlorothiazide 25 mg, hydrocodone 10/325 q.4 hours p.r.n., ibuprofen 800 mg, Singulair 10 mg, MS Contin 30 mg b.i.d., tizanidine 4 mg. PAIN CLINIC ASSESSMENT AND PQRS: 1. The patient is not being treated for rheumatoid arthritis. She does have some arthritic changes in her neck. 2. Height 5 feet 8 inches, weight 202 pounds, BMI is 30. 3. Vital Signs: Blood pressure 131/69, heart rate 76, respiratory rate 20, room, room air saturation 94%, temperature 98.2. 4. Pain intensity, 5/10. 5. Fall history. The patient has not fallen in the last 3 months. 6. Blood thinner. The patient is not on a blood thinning medication. 7. Hypertension. The patient is being treated for hypertension. 8. Opioids. The patient receives medication from one source, the pain clinic. 9. Risk assessment tool, low for opioid use. 10. Recreational drug use. The patient denies. 11. Tobacco. The patient denies. 12. Alcohol. The patient [place] [address] PAIN MANAGEMENT CONSULTATION Name: GLENNABRYN D [facility] [id number] Admission: 10/02/19 Attend Phys: Rehana Reese MD Discharge: Date of : 51 Report #: [id number] PHYSICAL EXAMINATION: GENERAL: The patient is a well-developed, well-nourished, white female. Appears her stated age. She is accompanied by her . She is alert and oriented x 3. Her affect is appropriate. Speech is fluent. HEENT: Normocephalic, atraumatic. Extraocular eye muscles intact. Sclerae nonicteric. Mucous membranes are moist. The patient is wearing a mask. NECK: Without adenopathy or JVD. HEART: Regular. LUNGS: Generally clear. ABDOMEN: Nontender. MUSCULOSKELETAL: The patient with some discomfort in the posterior portion of her deltoids. Muscle strength in the upper extremity judged to be 5-/5 for the major muscle groups in the upper extremity. The patient has pain in her knees. Has pain in her hips. Also, complains of pain and discomfort in the shoulder. IMPRESSION: 1. Shoulder pain. 2. History of cervical radicular pain, status post cervical fusion. 3. Depression. 4. Chronic pain, requiring opioids and complex medications to help control the pain. 5. Neuropathic pain. RECOMMENDATIONS: We discussed treatment options with the patient. Risks and benefits of opioid medications were again discussed. The patient is aware that opioid medications can be helpful. They can become less effective as time goes on because of the development of tolerance. The patient feels that the medications are helpful. She would like to continue their use. Keeps her medications in a guarded area. She is not showing signs of addiction. A script for her medications have been forwarded to her pharmacy. She will continue with hydrocodone 10/325, 100 tablets monthly have been allocated. The patient will also continue with MS Contin 30 mg 1 tablet daily. She has been given 3-month supply of medication. She will call us if she has any concerns. We would like to thank you for letting us participate in her care. We hope she continues to improve. <ELECTRONICALLY SIGNED> By: Rehana Reese MD 10/13/19 [id number]. Kali Reese MD /[facility]
== END ==
LOC: M.PC 04:23
PROVIDERS: ATTEND Anesthesiology Pain Medicine
DX: G89.29 Other chronic pain (principal); M25.511 Pain in right shoulder; M25.512 Pain in left shoulder; M54.2 Cervicalgia; M25.561 Pain in right knee; M25.562 Pain in left knee; M25.551 Pain in right hip; M25.552 Pain in left hip; F32.9 Major depressive disorder, single episode, unspecified; M79.2 Neuralgia and neuritis, unspecified; Z88.8 Allergy status to other drugs, medicaments and biological substances; Z68.30 Body mass index [BMI] 30.0-30.9, adult; Z79.891 Long term (current) use of opiate analgesic; Z79.899 Other long term (current) drug therapy

== ENCOUNTER → 2019-12-25 | Outpatient (CLI) | payer MEDICARE, OTHER ==
[~2019-12-25] MED LIST changes: +NARCAN4 MG NARES
--- NOTE | 2020-01-13 14:36 | PAINCON ---
[facility] [address] [place] [address] PAIN MANAGEMENT CONSULTATION Name: BRYN MANZANARES Room: [facility]#: [id number] Admission: 12/25/19 Attend Phys: Rehana Reese MD Discharge: Date of : 51 Report #: [id number] THIS REPORT FOR: //name// cc: Jay Almeida Steve T. DO ~ CC: Rehana Almeida DATE OF SERVICE: 12/25/2019 CHIEF COMPLAINT: Neck pain and arm pain. HISTORY: The patient is a 64-year-old female who has been followed in the pain clinic. As you may recall, she has pain, which is problematic. Pain, which is most problematic involves her neck and shoulders. She also has been plagued with knee pain. Has some discomfort in her hips. These have been problematic for years as well. She has had no significant change since we saw her last. Overall, she feels that the medications continue to be helpful. The temperature has changed. It has gotten colder. She has noted an exacerbation of her discomfort. Walking, sitting, standing, bending, and lifting are problematic. Finds that use of her medications are helpful. She does find benefit and comfort with use of heat. ALLERGIES: SULFA, DARVOCET. CURRENT MEDICATIONS: Abilify, Wellbutrin 75 mcg b.i.d., BuSpar 30 mg t.i.d., Colestid 5 mg, Cymbalta 30 mg, Mucinex 600 mg b.i.d., hydrochlorothiazide 25 mg, hydrocodone 10/325, ibuprofen 800 mg, Singulair 10 mg, MS Contin 30 mg b.i.d., tizanidine 4 mg. PAIN CLINIC ASSESSMENT AND PQRS: 1. The patient is not being treated for rheumatoid arthritis. She does have some arthritic changes in her neck. Height 5 feet 8 inches, weight 205 pounds, BMI is 31. 2. Vital signs: Blood pressure 148/70 heart rate 73, respiratory rate 16, room air saturation is 94%, temperature 98.3. 3. Pain intensity 08/19. 4. Fall history: The patient has not fallen in the last 3 months. 5. Blood thinner. The patient is not on a blood thinning medication. 6. Hypertension. The patient is being treated for hypertension. 7. Opioids. The patient receives medications from one source the pain clinic. 8. Risk assessment tool, low for opioid use. 9. Recreational drug use: The patient denies. 10. Tobacco: The patient denies. 11. Alcohol. The patient [place] [address] PAIN MANAGEMENT CONSULTATION Name: BRYN MANZANARES Room: [facility]#: [id number] Admission: 12/25/19 Attend Phys: Rehana Reese MD Discharge: Date of : 51 Report #: [id number] PHYSICAL EXAMINATION: GENERAL: The patient is a well-developed, well-nourished white female. Appears her stated age. She is alert and oriented x 3. Her affect is appropriate. Speech is fluent. The patient is accompanied by her . She is wearing a facial covering. NECK: Without adenopathy or JVD. HEART: Regular rate. LUNGS: Generally clear. ABDOMEN: Nontender. MUSCULOSKELETAL: The patient does have some discomfort in the posterior portion of her deltoids. Muscle strength in the upper extremities, judged to be 5-/5 for the major muscle groups in the upper extremity. The patient has some pain in her knees. Has pain in her hips. Has pain in her shoulder. IMPRESSION: 1. Shoulder pain. 2. History of cervical radiculopathy status post cervical fusion. 3. Depression. 4. Chronic pain, requiring opioid and complex medications to help control the pain. 5. Neuropathic pain. RECOMMENDATIONS: We discussed treatment options with the patient. At this juncture, we will continue with her medications. She feels that the medications are helpful. She will continue with medications as prescribed. She feels that these medications are beneficial. She is able to think clearly. We will continue with hydrocodone 10/325 one p.o. total of #100 tablets per month for the next 3 months. She will also continue with meloxicam and note its effect on her GI tract. She will stop taking the medication should she note some gastric problems. The patient will also continue with morphine sulfate 30 mg 1 p.o. b.i.d. The patient feels that these medications are helpful. They are not fogging or causing any problems with her sensorium. The patient also finds that Zanaflex is helpful with muscle spasms. She will continue with this medication as well. The patient has been provided with naloxone in the past. We would like to thank you for letting us participate in her care. We hope she continues to improve. <ELECTRONICALLY SIGNED> By: Rehana Reese MD 01/13/20 1436 [id number]. Kali Reese MD /nt
== END ==
LOC: M.PC 10:17
PROVIDERS: ATTEND Anesthesiology Pain Medicine
DX: G89.29 Other chronic pain (principal); M25.512 Pain in left shoulder; M25.511 Pain in right shoulder; F32.9 Major depressive disorder, single episode, unspecified; Z79.891 Long term (current) use of opiate analgesic; Z79.899 Other long term (current) drug therapy

== ENCOUNTER 2020-01-01 18:18 | Emergency (ER) | payer MEDICARE, OTHER ==
[~2020-01-01] VITALS: Ht 172.7 cm; Wt 88.0 kg
[2020-01-01 18:58] LABS: ABSOLUTE BASOPHILS 0.1 thou/uL (0.0-0.2); ABSOLUTE LYMPHOCYTES 2.2 thou/uL (0.8-5.3); ABSOLUTE MONOCYTES 0.4 thou/uL (0.0-1.2); ABSOLUTE NEUTROPHILS 11.6 thou/uL (1.6-8.1); BASOPHILS 0.7 %; EOSINOPHILS 0.1 %; HEMATOCRIT 35.7 % (37.0-47.0); HEMOGLOBIN 11.8 gm/dL (12.0-15.0); LYMPHOCYTES 15.6 %; MCH 29.2 pg (26.0-34.0); MCHC 33.1 g/dL (28.0-37.0); MCV 88.2 fL (80.0-100.0); MONOCYTES 2.8 %; NUCLEATED RBCS 0 /100WBC; PLATELET COUNT* 395 thou/uL (150-400); POLYS 80.8 %; RBC 4.05 mil/uL (4.20-5.00); RDW-CV 15.4 % (10.5-14.5); WBC 14.3 thou/uL (4.0-11.0)
[2020-01-01 19:12] LABS: CALCIUM 8.4 mg/dL (8.5-10.1); CREATININE 1.3 mg/dL (0.6-1.3); POTASSIUM 3.3 mmol/L (3.5-5.1)
[2020-01-01 19:18] LABS: ALBUMIN 3.3 g/dL (3.4-5.0); MAGNESIUM 1.3 mg/dL (1.8-2.4); TOTAL BILIRUBIN 0.4 mg/dL (<0.1-1.0); TOTAL PROTEIN 7.2 g/dL (6.4-8.2)
[2020-01-01 21:40] VITALS: BP 132/65
--- NOTE | 2020-01-02 15:09 | EKG ---
[place] [address] ELECTROCARDIOGRAM REPORT Name: GLENNABRYN Tiffanie [facility] [id number] Admission: 01/01/20 Attend Phys: Discharge: 01/01/20 Date of : 51 Date of Service: 01/01/201824 Report #: [id number] THIS REPORT FOR: //name// [facility] ED Test Date: 2020-01-01 Test Time: 18:25:03 Pat Name: BRYN MANZANARES Department: Room: Gender: Infection Preventionist: BERTHA : 1955 Requested By: Peter Black Order Number: [id number] MD: Morris Lal Measurements Intervals [place] Rate: 77 P: 67 [place]: 162 QRS: 10 QRSD: 82 T: 25 QT: 379 QTc: 429 Interpretive Statements Sinus rhythm Atrial premature complex Probable left atrial enlargement Compared to ECG 02/28/2019 00:36:37 Atrial premature complex(es) now present T-wave abnormality no longer present Electronically Signed On 01-02-2020 15:09:15 CDT by Morris Lal [email or web address] <ELECTRONICALLY SIGNED> By: Morris Lal MD, FACC 01/02/20 1509 1825 1825 Morris Lal MD, [facility] /EPI
== END 2020-01-01 21:40 | disposition home or self-care (01) ==
LOC: M.ERS 18:18
PROVIDERS: Emergency Medicine Emergency Medical Services
DX: R07.9 Chest pain, unspecified (principal); R06.02 Shortness of breath; R53.83 Other fatigue; M19.90 Unspecified osteoarthritis, unspecified site; M79.7 Fibromyalgia; Z90.710 Acquired absence of both cervix and uterus; Z88.2 Allergy status to sulfonamides; Z88.8 Allergy status to other drugs, medicaments and biological substances; Z79.899 Other long term (current) drug therapy

== ENCOUNTER → 2020-03-18 | Outpatient (CLI) | payer MEDICARE, OTHER | END | disposition home or self-care (01) | LOC: M.PC 09:56 | PROVIDERS: ATTEND Anesthesiology Pain Medicine | DX: M79.18 Myalgia, other site (principal); M25.512 Pain in left shoulder; G89.29 Other chronic pain; I10 Essential (primary) hypertension; F32.9 Major depressive disorder, single episode, unspecified; M19.90 Unspecified osteoarthritis, unspecified site; G62.9 Polyneuropathy, unspecified; K50.90 Crohn's disease, unspecified, without complications; Z98.890 Other specified postprocedural states; Z79.899 Other long term (current) drug therapy; Z88.8 Allergy status to other drugs, medicaments and biological substances; Z90.710 Acquired absence of both cervix and uterus ==

== ENCOUNTER → 2020-03-18 | Outpatient (CLI) | payer MEDICARE, OTHER | END | disposition home or self-care (01) | LOC: M.PC 09:52 | PROVIDERS: ATTEND Anesthesiology Pain Medicine | DX: M79.18 Myalgia, other site (principal); M25.512 Pain in left shoulder; G89.29 Other chronic pain; G62.9 Polyneuropathy, unspecified; I10 Essential (primary) hypertension; M19.90 Unspecified osteoarthritis, unspecified site; F32.9 Major depressive disorder, single episode, unspecified; K50.90 Crohn's disease, unspecified, without complications; Z98.890 Other specified postprocedural states; Z79.899 Other long term (current) drug therapy; Z79.891 Long term (current) use of opiate analgesic; Z90.710 Acquired absence of both cervix and uterus ==

== ENCOUNTER → 2020-06-01 | Outpatient (CLI) | payer MEDICARE, OTHER | LOC: M.RAD 13:06 | PROVIDERS: ATTEND Nurse Practitioner Family | DX: M19.012 Primary osteoarthritis, left shoulder (principal); M24.812 Other specific joint derangements of left shoulder, not elsewhere classified; M25.612 Stiffness of left shoulder, not elsewhere classified ==

== ENCOUNTER → 2020-06-15 | Outpatient (CLI) | payer MEDICARE, OTHER | LOC: M.PC 06-10 10:00 | PROVIDERS: ATTEND Anesthesiology Pain Medicine | DX: M25.512 Pain in left shoulder (principal); M25.552 Pain in left hip; M25.562 Pain in left knee; F32.9 Major depressive disorder, single episode, unspecified; G62.9 Polyneuropathy, unspecified; F11.20 Opioid dependence, uncomplicated; Z87.39 Personal history of other diseases of the musculoskeletal system and connective tissue ==

== ENCOUNTER 2020-06-21 19:52 | Observation (INO) | payer MEDICARE, OTHER ==
[~2020-06-21] VITALS: Ht 172.7 cm; Wt 97.1 kg
[2020-06-21 20:00] VITALS: BP 101/46
[2020-06-21] MEDS ORDERED: VITAMIN D3 PO (20:24)
[2020-06-21] MEDS ORDERED: PROTONIX40 M2 PO (20:24)
[2020-06-21] MEDS ORDERED: BUPROPION XL300 MG PO (20:25)
[2020-06-21 21:13] LABS: ABSOLUTE BASOPHILS 0.1 thou/uL (0.0-0.2); ABSOLUTE EOSINOPHILS 0.3 thou/uL (0.0-0.7); ABSOLUTE LYMPHOCYTES 3.5 thou/uL (0.8-5.3); ABSOLUTE MONOCYTES 0.9 thou/uL (0.0-1.2); ABSOLUTE NEUTROPHILS 8.3 thou/uL (1.6-8.1); BASOPHILS 0.5 %; EOSINOPHILS 1.9 %; HEMATOCRIT 31.9 % (37.0-47.0); HEMOGLOBIN 10.6 gm/dL (12.0-15.0); LYMPHOCYTES 26.9 %; MCH 28.5 pg (26.0-34.0); MCHC 33.3 g/dL (28.0-37.0); MCV 85.4 fL (80.0-100.0); MONOCYTES 6.7 %; MPV 6.7 fl. (7.2-11.1); NUCLEATED RBCS 0 /100WBC; PLATELET COUNT* 387 thou/uL (150-400); RBC 3.73 mil/uL (4.20-5.00); RDW-CV 16.1 % (10.5-14.5)
[2020-06-21 21:23] LABS: PROTIME 10.9 Seconds (9.20-11.50)
[2020-06-21 21:31] LABS: ALBUMIN 3.2 g/dL (3.4-5.0); CALCIUM 8.5 mg/dL (8.5-10.1); CREATININE 1.3 mg/dL (0.6-1.3); MAGNESIUM 1.5 mg/dL (1.8-2.4); TOTAL BILIRUBIN 0.3 mg/dL (<0.1-1.0); TOTAL PROTEIN 6.7 g/dL (6.4-8.2)
[2020-06-21 21:35] LABS: POTASSIUM 2.8 mmol/L (3.5-5.1)
[2020-06-21 23:35] VITALS: BP 147/57
[2020-06-22] VITALS: BP 124/50
--- NOTE | 2020-06-22 | NUR ---
RECEIVED REPORT FROM ER, PT TO ROOM PER CART WITH BELONGINGS. AMBULATED WITH STEADY GAIT FROM CART TO BED. NO ACUTE DISTRESS AT THIS TIME. INFUSION OF MAGNESIUM FINISHING UP. TELEMETRY APPLIED SHOWING SR. SEE ADMISSION ASSESSMENT AND HX.
[2020-06-22 04:00] VITALS: BP 90/34
[2020-06-22 08:00] VITALS: BP 132/57
[2020-06-22 09:32] LABS: ABSOLUTE BASOPHILS 0.1 thou/uL (0.0-0.2); ABSOLUTE EOSINOPHILS 0.2 thou/uL (0.0-0.7); ABSOLUTE LYMPHOCYTES 2.8 thou/uL (0.8-5.3); ABSOLUTE MONOCYTES 0.6 thou/uL (0.0-1.2); ABSOLUTE NEUTROPHILS 6.9 thou/uL (1.6-8.1); BASOPHILS 0.8 %; EOSINOPHILS 1.9 %; HEMATOCRIT 33.3 % (37.0-47.0); LYMPHOCYTES 26.2 %; MCH 28.1 pg (26.0-34.0); MONOCYTES 5.8 %; MPV 6.7 fl. (7.2-11.1); NUCLEATED RBCS 0 /100WBC; PLATELET COUNT* 425 thou/uL (150-400); POLYS 65.3 %; RBC 3.91 mil/uL (4.20-5.00); RDW-CV 16.2 % (10.5-14.5); WBC 10.6 thou/uL (4.0-11.0)
--- NOTE | 2020-06-22 09:38 | EKG ---
[place] [address] ELECTROCARDIOGRAM REPORT Name: BRYN MANZANARES Room: [address] M.R.#: [id number] Admission: 06/21/20 Attend Phys: Kaye Dinero Discharge: Date of : 51 Date of Service: 06/21/201956 Report #: [id number] THIS REPORT FOR: //name// [facility] ED Test Date: 2020-06-21 Test Time: 19:57:15 Pat Name: BRYN MANZANARES Department: Room: [facility] Gender: F Scientific Affairs Manager: RILEY : 1955 Requested By: Celeste Forrest Order Number: [id number] MD: Guzman Jimenez Measurements Intervals [place] Rate: 80 P: 68 [place]: 173 QRS: 8 QRSD: 86 T: 10 QT: 374 QTc: 432 Interpretive Statements Sinus rhythm Baseline wander in lead(s) V1 Compared to ECG 01/01/2020 18:25:03 Atrial premature complex(es) no longer present Electronically Signed On 06-22-2020 9:38:28 CDT by Guzman Jimenez [email or web address] <ELECTRONICALLY SIGNED> By: Guzman Jimenez MD, FAC 06/22/20 0938 56 56 Guzman Jimenez MD, FAC /EPI
[2020-06-22 09:39] LABS: CALCIUM 8.4 mg/dL (8.5-10.1); CREATININE 1.2 mg/dL (0.6-1.3); POTASSIUM 3.2 mmol/L (3.5-5.1)
[2020-06-22] MEDS ORDERED: MAG-OXIDE400 MG PO (11:41)
[2020-06-22] MEDS ORDERED: POTASSIUM20 PO (11:42)
[2020-06-22] MEDS ORDERED: FLAGYL500 M1 PO (12:03)
[2020-06-22 12:12] VITALS: BP 132/57
--- NOTE | 2020-06-22 13:26 | NUR ---
ASSUMED PT CARE AT 0730, PT AOX4, PT C/O ANXIETY, NOTIFIED AND HOME MEDS RESUMED AND GIVEN TO PT. POTASSIUM RECHECKED AND BETTER, ONE LAST DOSE GIVEN BEFORE DC. DC ORDERS RECEIVED. DC INSTRUCTIONS, CARE NOTES, SCRIPTS AND F/U APPTS GIVEN TO PT. PT COMMUNICATES UNDERSTANDING OF DC TEACHING. IV AND FAMILY DENTIST REMOVED. PT DC'D BY WC W/ NURSING STAFF AND ALL PAPERWORK AND PERSONAL BELONGINGS TO 'S PERSONAL VEHICLE AT APPROX 1327.
[2020-06-22 13:27] VITALS: BP 132/57
[2020-06-22 13:35] LABS: URINE BILIRUBIN NEGATIVE (Negative); URINE BLOOD NEGATIVE (Negative); URINE CLARITY CLEAR; URINE COLOR YELLOW; URINE GLUCOSE-RANDOM NEGATIVE (Negative); URINE KETONES NEGATIVE (Negative); URINE LEUKOCYTES-REFLEX NEGATIVE (Negative); URINE NITRITE-REFLEX NEGATIVE (Negative); URINE PROTEIN NEGATIVE (Negative); URINE UROBILINOGEN 0.2 E.U./dl (0.2-1.0)
== END 2020-06-22 13:27 | disposition home or self-care (01) ==
LOC: M.ERS 19:52 → M.TBA-ER 22:08 → M.2W 23:42
PROVIDERS: Emergency Medicine; Internal Medicine; ADMIT Internal Medicine; ATTEND Internal Medicine
DX: K52.9 Noninfective gastroenteritis and colitis, unspecified (principal); Z20.822 Contact with and (suspected) exposure to COVID-19; E87.6 Hypokalemia; E83.42 Hypomagnesemia; I10 Essential (primary) hypertension; M79.7 Fibromyalgia; G89.29 Other chronic pain; E86.0 Dehydration; F32.9 Major depressive disorder, single episode, unspecified; Z87.19 Personal history of other diseases of the digestive system; Z79.899 Other long term (current) drug therapy; Z79.891 Long term (current) use of opiate analgesic

== ENCOUNTER → 2020-09-07 | Outpatient (CLI) | payer MEDICARE, OTHER ==
[~2020-09-07] MED LIST changes: +BUPROPION XL300 MG PO; +FLAGYL500 M1 PO; +MAG-OXIDE400 MG PO; +POTASSIUM20 PO; +PROTONIX40 M2 PO; +SEROQUEL 25 MG25 MG PO; +VITAMIN D3 PO
== END ==
LOC: M.PC 11:22
PROVIDERS: ATTEND Anesthesiology Pain Medicine
DX: M25.512 Pain in left shoulder (principal); M54.12 Radiculopathy, cervical region; G62.9 Polyneuropathy, unspecified; F32.9 Major depressive disorder, single episode, unspecified; Z79.891 Long term (current) use of opiate analgesic; Z98.1 Arthrodesis status; Z79.899 Other long term (current) drug therapy

== ENCOUNTER → 2020-09-28 | Outpatient (CLI) | payer MEDICARE, OTHER ==
[2020-09-28 14:41] LABS: ABSOLUTE BASOPHILS 0.1 thou/uL (0.0-0.2); ABSOLUTE EOSINOPHILS 0.5 thou/uL (0.0-0.7); ABSOLUTE LYMPHOCYTES 3.7 thou/uL (0.8-5.3); ABSOLUTE MONOCYTES 0.7 thou/uL (0.0-1.2); ABSOLUTE NEUTROPHILS 5.8 thou/uL (1.6-8.1); BASOPHILS 1.1 %; EOSINOPHILS 4.3 %; HEMATOCRIT 32.1 % (37.0-47.0); HEMOGLOBIN 10.6 gm/dL (12.0-15.0); LYMPHOCYTES 34.2 %; MCHC 33.2 g/dL (28.0-37.0); MCV 84.4 fL (80.0-100.0); MONOCYTES 6.9 %; MPV 7.1 fl. (7.2-11.1); NUCLEATED RBCS 0 /100WBC; PLATELET COUNT* 341 thou/uL (150-400); POLYS 53.5 %; RDW-CV 17.5 % (10.5-14.5); WBC 10.9 thou/uL (4.0-11.0)
== END ==
LOC: M.LAB 13:50
PROVIDERS: ATTEND Nurse Practitioner Family
DX: M19.012 Primary osteoarthritis, left shoulder (principal); M25.512 Pain in left shoulder

== ENCOUNTER → 2020-10-25 | Outpatient (CLI) | payer MEDICARE, OTHER | LOC: M.RAD 11:32 | PROVIDERS: ATTEND Nurse Practitioner Family | DX: M25.551 Pain in right hip (principal); M25.552 Pain in left hip; M47.816 Spondylosis without myelopathy or radiculopathy, lumbar region ==

== ENCOUNTER → 2020-12-07 | Outpatient (CLI) | payer MEDICARE, OTHER | LOC: M.PC 11-30 11:40 | PROVIDERS: ATTEND Anesthesiology Pain Medicine | DX: G89.29 Other chronic pain (principal); M25.512 Pain in left shoulder; M25.569 Pain in unspecified knee; M25.559 Pain in unspecified hip; M54.12 Radiculopathy, cervical region; F34.9 Persistent mood [affective] disorder, unspecified; M43.22 Fusion of spine, cervical region; Z88.8 Allergy status to other drugs, medicaments and biological substances; Z79.899 Other long term (current) drug therapy ==

== ENCOUNTER → 2021-03-29 | Outpatient (CLI) | payer MEDICARE, OTHER | LOC: M.PC 12:25 | PROVIDERS: ATTEND Anesthesiology Pain Medicine | DX: M25.512 Pain in left shoulder (principal); M25.569 Pain in unspecified knee; M25.559 Pain in unspecified hip; G89.29 Other chronic pain; F34.89 Other specified persistent mood disorders; Z88.8 Allergy status to other drugs, medicaments and biological substances; Z79.899 Other long term (current) drug therapy ==